=== PATIENT | male | born 1965 | race Caucasian/White ===

== ENCOUNTER → 2018-01-05 11:13 | Outpatient (CLI) | payer OTHER, SELFPAY ==
[2018-01-05 11:59] LABS: Hemoglobin 15.7 g/dl (13.0-16.5); Mean Corp Hgb Conc 34.9 g/gl (32-36); Mean Corpuscular Hgb 30.1 pg (27.0-32.0); Mean Corpuscular Volume 86.4 fL (80-94); Platelet Count 305 K/mm3 (150-450); RBC Distribution Width CV 13.3 % (11.6-14.6); RBC Distribution Width SD 41.6 fl (35.1-43.9); Red Blood Count 5.21 M/mm3 (4.6-6.2); Scan Indicated on CBC? Y/N NO; White Blood Count 7.3 K/mm3 (4.4-11.0)
[2018-01-05 12:31] LABS: Albumin, Serum 3.9 g/dL (3.2-5.0); BUN 19 mg/dL (7-18); BUN/Creat Ratio 18.6 RATIO (10-20); Calcium,Total 8.9 mg/dL (8.5-10.1); Chloride 102 mmol/L (98-107); Creatinine, Serum 1.02 mg/dL (0.70-1.30); EST Glomerular Filtration Rate 82 mL/min (>60); Est Glom Filt Rate - Afr Amer 99 mL/min (>60); Glucose 98 mg/dL (74-106); PSA,Total - Annual Screen 0.46 ng/mL (0.00-4.00); Phosphorus 2.2 mg/dL (2.5-4.9); Potassium 3.9 mmol/L (3.5-5.1); Sodium Level 138 mmol/L (136-145)
[2018-01-05 12:43] LABS: PTHIN 60.3 pg/mL (18.4-80.1); Vitamin D,25 Hydroxy 76.2 ng/mL (29.95-100.01)
== END ==
PROVIDERS: Family Provider Family Medicine Geriatric Medicine; PCP Family Medicine Geriatric Medicine; Visit Provider Internal Medicine Endocrinology, Diabetes & Metabolism
DX: M81.0 Age-related osteoporosis without current pathological fracture (principal); E21.1 Secondary hyperparathyroidism, not elsewhere classified; E55.9 Vitamin D deficiency, unspecified; E23.6 Other disorders of pituitary gland; Z79.899 Other long term (current) drug therapy
CPT/HCPCS: 36415; 80069; 82306; 83970; 84153; 84403; 85027; G0103

== ENCOUNTER → 2018-02-02 13:32 | Outpatient (CLI) | payer OTHER, SELFPAY ==
[2018-02-02 18:07] LABS: Absolute Neutrophil Count 3.9 X10^3/uL (2.0-7.7); Basophil# 0.02 X10^3/uL; Basophil% 0.3 % (0-1); Eosinophil# 0.09 X10^3/uL; Eosinophils% 1.4 % (0-5); Hematocrit 46.2 % (40-54); Hemoglobin 15.3 g/dl (13.0-16.5); Lymphocyte % 26.9 % (19-41); Mean Corp Hgb Conc 33.1 g/gl (32-36); Mean Corpuscular Hgb 29.7 pg (27.0-32.0); Mean Corpuscular Volume 89.7 fL (80-94); Monocyte% 9.5 % (0-10); Neutrophil # 3.88 X10^3/uL (2.7-7.7); Neutrophil % 61.3 % (47-70); Platelet Count 316 K/mm3 (150-450); RBC Distribution Width CV 13.7 % (11.6-14.6); RBC Distribution Width SD 44.7 fl (35.1-43.9); Red Blood Count 5.15 M/mm3 (4.6-6.2); White Blood Count 6.3 K/mm3 (4.4-11.0)
[2018-02-02 18:18] LABS: POSITIVE COUNT NO; POSITIVE DIFFERENTIAL NO; POSITIVE MORPHOLOGY NO
[2018-02-02 20:24] LABS: Vitamin D,25 Hydroxy 57.5 ng/mL (29.95-100.01)
[2018-02-02 21:18] LABS: ALB/GLOB Ratio 1.3 RATIO (0.9-2.4); AST(SGOT) 31 U/L (15-37); Alanine Aminotransfer ALT/SGPT 66 U/L (16-61); Albumin, Serum 4.2 g/dL (3.2-5.0); Alkaline Phosphatase 112 U/L (45-117); Anion Gap 6 (5-15); BUN 19 mg/dL (7-18); BUN/Creat Ratio 20.1 RATIO (10-20); Calcium,Total 9.1 mg/dL (8.5-10.1); Chloride 105 mmol/L (98-107); Creatinine, Serum 0.94 mg/dL (0.70-1.30); EST Glomerular Filtration Rate 89 mL/min (>60); Est Glom Filt Rate - Afr Amer 108 mL/min (>60); Globulin 3.3 g/dL (2.2-4.2); Glucose 70 mg/dL (74-106); Potassium 4.3 mmol/L (3.5-5.1); Protein, Total 7.5 g/dL (6.4-8.2); Sodium Level 140 mmol/L (136-145); Thyroid Stim Hormone (TSH) 1.42 uIU/mL (0.358-3.74)
== END ==
PROVIDERS: Family Provider Family Medicine Geriatric Medicine; PCP Family Medicine Geriatric Medicine; Visit Provider Family Medicine Geriatric Medicine
DX: I10 Essential (primary) hypertension (principal); E55.9 Vitamin D deficiency, unspecified
CPT/HCPCS: 36415; 80053; 82306; 84443; 85025

== ENCOUNTER → 2018-04-01 10:19 | Outpatient (CLI) | payer OTHER, SELFPAY ==
--- NOTE | 2018-04-01 10:23 | RAD_ITS ---
STUDY: X-RAY - UNILATERAL RIBS ( LEFT ) REASON FOR EXAM: Male, 53 years old. Pain status post coughing fit. TECHNIQUE: 4 view(s) of the ribs. COMPARISON: Chest radiograph dated May 24, 2016 FINDINGS: Normal visualized ribs without a demonstrated fracture. The visualized lung is clear and expanded. RAD/Ribs Unil 2V No CXR IMPRESSION: Within normal limits x-ray examination of the ribs. Electronically Signed: Tahira Vaughn MD at 19:07 EDT Tel , Service support ,
--- NOTE | 2018-04-01 10:24 | RAD_ITS ---
STUDY: X-RAY CHEST REASON FOR EXAM: Male, 53 years old. Left mid rib pain. TECHNIQUE: PA and lateral views of the chest. COMPARISON: April 27 and May 24, 2016 FINDINGS: There is no new focal consolidation. The lungs remain hyperinflated. There are stable bilateral granulomas. Normal size heart. Normal mediastinum and binta. Normal visualized pulmonary arteries. Normal visualized aortic arch and descending thoracic aorta. Normal visualized thoracic spine. Normal visualized ribs, clavicles, and shoulders. There is no demonstrated abnormality of the visualized soft tissue structures of the upper abdomen. RAD/Chest PA and Lateral IMPRESSION: Stable examination demonstrating no acute cardiopulmonary process. Electronically Signed: Tahira Vaughn MD at 17:08 EDT Tel , Service support ,
== END ==
PROVIDERS: Family Provider Family Medicine Geriatric Medicine; PCP Family Medicine Geriatric Medicine; Visit Provider Family Medicine Geriatric Medicine
DX: R07.89 Other chest pain (principal); R09.1 Pleurisy
CPT/HCPCS: 71046; 71100

== ENCOUNTER 2018-05-13 06:57 | Day surgery (SDC) | payer OTHER, SELFPAY ==
[2018-05-13 07:17] VITALS: BP 109/79; PULSE 66; RESP 14; TEMP 36.8; O2SAT 96; BMI 26.6
--- NOTE | 2018-05-13 07:38 | PCM.HP.STD ---
History of Present Illness Date of Admission: 05/13/18 The patient is a 53 year old M presented for colonoscopy and EGD for evaluation reflux and screening colonoscopy. 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 Patient has been able to stop his Plavix. Patient has never had a scope previously. He is also on opiates daily for back pain and he does have constipation about once a week which now he does state he has occasional blood on the toilet paper. But denies any family history of colon cancer. He states his dysphagia occurs maybe about once a week he feels like it catches in his lower esophagus but he will wait or drink and it will resolve he is only had emesis once since his last appointment which was back in the end of February. Past Medical History Past Medical History (Chronic Problems): Chronic Problems (Last Updated 03/03/18 @ 08:33 by Puja Brenner) Dysphagia (Chronic) For the past couple months feels like food/pills and liquids may stick in lower neck happens about once a week History of dissection of internal carotid artery (Chronic) Left ICA near petrous portion, near resolution as of CTA Head-07/03/16 at [facility] Medical History: Medical History (Last Updated 03/03/18 @ 08:33 by Puja Brenner) History of dissection of internal carotid artery (Chronic) Z86.79 Left ICA near petrous portion, near resolution as of CTA Head-07/03/16 at [facility] Back pain M54.9 Carotid artery dissection I77.71 Hypercholesterolemia with hyperglyceridemia E78.2 HTN (hypertension) I10 Allergies No Known Allergies Allergy (Verified 05/13/18 07:14) Home Medications: Ambulatory Orders Medication Instructions Recorded Ascorbic Acid [Vitamin C] 500 mg PO DAILY@0800 08/06/13 Calcium Carb/Vitamin D 2 tab PO DAILY@0800 08/06/13 [Caltrate-600 With Vit D Tab] Cholecalciferol (Vitamin D3) 1 tab PO DAILY 08/06/13 [Vitamin D3] Hydrochlorothiazide [Hctz] 6.25 mg PO BID 08/06/13 Multivitamins,Therapeutic 1 tablet PO DAILY 08/06/13 [Multivitamin] Oxycodone HCl/Acetaminophen 1 - 2 tablet PO Q6H PRN PRN 08/06/13 [Percocet 5/325] fentaNYL patch [Duragesic] 25 mcg TRANSDERM. Q48H 08/06/13 Magnesium 200 mg PO DAILY 10/03/15 Aspirin 325 mg PO DAILY@0800 05/24/16 atorvastatin 40 mg tablet 40 mg PO QDAY 03/03/18 clopidogrel 75 mg tablet 75 mg PO QDAY 03/03/18 doxepin 50 mg capsule 50 mg PO QHS PRN 03/03/18 zoledronic acid 5 mg/100 mL in 5 mg IV X1 03/03/18 mannitol 5 %-water intravenous piggybck Surgical History: Surgical History (Last Updated 03/03/18 @ 08:33 by Puja Brenner) H/O vasectomy Z98.52 History of back surgery Z98.890 x 2 History of total right hip arthroplasty Z96.641 S/P carpal tunnel release Z98.890 Smoking Status: Former smoker Review of Systems Constitutional: Denies: Anorexia, Fever Eyes: Denies: Blurred vision HEENT: Reports: Difficulty Swallowing Cardiovascular: Denies: Chest Pain Respiratory: Denies: Shortness of breath at rest Gastrointestinal: Reports: Constipation. Denies: Abdominal Pain Genitourinary: Denies: Dysuria Musculoskeletal: Denies: Joint Pain VTE Information - Inpt Only VTE Present on Admission: No VTE Mechan Device Prophylaxis: None VTE Pharm Prophylaxis ordered?: No - Physical Exam General: Alert, Oriented x3, Cooperative, No apparent distress Lungs: Normal air movement Cardiovascular: Regular rate Abdomen: Soft, Non Tender - No guarding or rebound, Non-Distended Extremities: No clubbing, No cyanosis, No edema Skin: No rashes Musculoskeletal: No Tenderness to Palpation of Joints or Extremities Neurological: Cranial nerves II-XII grossly intact Psych/Mental Status: Normal Affect Vital Signs Temp Pulse Resp BP Pulse Ox 98.2 F 66 14 109/79 96 05/13/18 07:17 05/13/18 07:17 05/13/18 07:17 05/13/18 07:17 05/13/18 07:17 Oxygen Delivery Method Room Air Weight: 186 lb 1.122 oz Body Mass Index (BMI) 26.6 Finger Stick Blood Glucose 87 Assessment/Plan 53-year-old male for colonoscopy for screening and EGD for dysphasia 1. I have discussed the above with the patient. I have offered the patient EGD and colonoscopy for evaluation. I have explained the risks/benefits of the procedure and described the procedure. I have discussed the risks with the patient, including but not limited to: infection, bleeding, perforation of the GI tract requiring emergency surgery, inability to complete the procedure, injury to any internal organs, complications of anesthesia, etc. - the patient understands and agrees to proceed. I have answered all the patient's questions to the patient's satisfaction and the patient has no further questions. Patient has completed that MiraLAX Dulcolax split prep and states that it is clear. Natalie Jiang M.D. Pager: [phone] [facility] [address] [place] [address] [address] [place] [address] Office: [phone]
--- NOTE | 2018-05-13 07:42 | HP.PCM_ITS ---
History of Present Illness Date of Admission: 05/13/18 The patient is a 53 year old M presented for colonoscopy and EGD for evaluation reflux and screening colonoscopy. 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 Patient has been able to stop his Plavix. Patient has never had a scope previously. He is also on opiates daily for back pain and he does have constipation about once a week which now he does state he has occasional blood on the toilet paper. But denies any family history of colon cancer. He states his dysphagia occurs maybe about once a week he feels like it catches in his lower esophagus but he will wait or drink and it will resolve he is only had emesis once since his last appointment which was back in the end of February. Past Medical History Past Medical History (Chronic Problems): Chronic Problems (Last Updated 03/03/18 @ 08:33 by Puja Brenner) Dysphagia (Chronic) For the past couple months feels like food/pills and liquids may stick in lower neck happens about once a week History of dissection of internal carotid artery (Chronic) Left ICA near petrous portion, near resolution as of CTA Head-07/03/16 at [facility] Medical History: Medical History (Last Updated 03/03/18 @ 08:33 by Puja Brenner) History of dissection of internal carotid artery (Chronic) Z86.79 Left ICA near petrous portion, near resolution as of CTA Head-07/03/16 at [facility] Back pain M54.9 Carotid artery dissection I77.71 Hypercholesterolemia with hyperglyceridemia E78.2 HTN (hypertension) I10 Allergies No Known Allergies Allergy (Verified 05/13/18 07:14) Home Medications: Ambulatory Orders Medication Instructions Recorded Ascorbic Acid [Vitamin C] 500 mg PO DAILY@0800 08/06/13 Calcium Carb/Vitamin D 2 tab PO DAILY@0800 08/06/13 [Caltrate-600 With Vit D Tab] Cholecalciferol (Vitamin D3) 1 tab PO DAILY 08/06/13 [Vitamin D3] Hydrochlorothiazide [Hctz] 6.25 mg PO BID 08/06/13 Multivitamins,Therapeutic 1 tablet PO DAILY 08/06/13 [Multivitamin] Oxycodone HCl/Acetaminophen 1 - 2 tablet PO Q6H PRN PRN 08/06/13 [Percocet 5/325] fentaNYL patch [Duragesic] 25 mcg TRANSDERM. Q48H 08/06/13 Magnesium 200 mg PO DAILY 10/03/15 Aspirin 325 mg PO DAILY@0800 05/24/16 atorvastatin 40 mg tablet 40 mg PO QDAY 03/03/18 clopidogrel 75 mg tablet 75 mg PO QDAY 03/03/18 doxepin 50 mg capsule 50 mg PO QHS PRN 03/03/18 zoledronic acid 5 mg/100 mL in 5 mg IV X1 03/03/18 mannitol 5 %-water intravenous piggybck Surgical History: Surgical History (Last Updated 03/03/18 @ 08:33 by Puja Brenner) H/O vasectomy Z98.52 History of back surgery Z98.890 x 2 History of total right hip arthroplasty Z96.641 S/P carpal tunnel release Z98.890 Smoking Status: Former smoker Review of Systems Constitutional: Denies: Anorexia, Fever Eyes: Denies: Blurred vision HEENT: Reports: Difficulty Swallowing Cardiovascular: Denies: Chest Pain Respiratory: Denies: Shortness of breath at rest Gastrointestinal: Reports: Constipation. Denies: Abdominal Pain Genitourinary: Denies: Dysuria Musculoskeletal: Denies: Joint Pain VTE Information - Inpt Only VTE Present on Admission: No VTE Mechan Device Prophylaxis: None VTE Pharm Prophylaxis ordered?: No - Physical Exam General: Alert, Oriented x3, Cooperative, No apparent distress Lungs: Normal air movement Cardiovascular: Regular rate Abdomen: Soft, Non Tender - No guarding or rebound, Non-Distended Extremities: No clubbing, No cyanosis, No edema Skin: No rashes Musculoskeletal: No Tenderness to Palpation of Joints or Extremities Neurological: Cranial nerves II-XII grossly intact Psych/Mental Status: Normal Affect Vital Signs Temp Pulse Resp BP Pulse Ox 98.2 F 66 14 109/79 96 05/13/18 07:17 05/13/18 07:17 05/13/18 07:17 05/13/18 07:17 05/13/18 07:17 Oxygen Delivery Method Room Air Weight: 186 lb 1.122 oz Body Mass Index (BMI) 26.6 Finger Stick Blood Glucose 87 Assessment/Plan 53-year-old male for colonoscopy for screening and EGD for dysphasia 1. I have discussed the above with the patient. I have offered the patient EGD and colonoscopy for evaluation. I have explained the risks/benefits of the procedure and described the procedure. I have discussed the risks with the patient, including but not limited to: infection, bleeding, perforation of the GI tract requiring emergency surgery, inability to complete the procedure, injury to any internal organs, complications of anesthesia, etc. - the patient understands and agrees to proceed. I have answered all the patient's questions to the patient's satisfaction and the patient has no further questions. Patient has completed that MiraLAX Dulcolax split prep and states that it is clear. Natalie Jiang M.D. Pager: [phone] [facility] [address] [place] [address] [address] [place] [address] Office: [phone]
--- NOTE | 2018-05-13 08:00 | IMM_PTH ---
PATIENT: EV RESENDEZ LOC: EN U#:[id number] AGE/SX: 53/M ROOM: RE05/13/[address]: Dr. Natalie Jiang MD : 1965 BED: DIS: 05/13/2018 SPEC #: [id number] RECD: 05/13/18 12:55 STATUS: KENN REQ #: [id number] BEATRIZ: 05/13/18 08:[address]: Natalie Jiang DEPT: IMMUNOHISTOCHEMISTRY RECD BY: Mily Diez ENTERED: 05/13/18 12:55 SP TYPE: IMMUNO OTHR DR: Dr. Marv Navarrete MD Tissues: Stomach, NOS Procedures: H Pylori (initial) PHYSICIAN & INSTITUTION [place] [id number] SPECIMEN INFORMATION: Tissue Source: Antrum biopsy Clinical Info: Dysphagia, screening for colon cancer Specimen Number: [id number] CPT code: 06516 METHODOLOGY: Deparaffinized sections of prefer/formalin-fixed tissue or PAP/DQ stained slides are incubated with monoclonal/polyclonal antibodies/oligonucleotide probes. Localization is made via biotin free immunoperoxidase method. Appropriate controls are performed and reacted as expected. Results on target cell population are indicated in the following table: RESULTS: ANTIBODY / CLONE RESULT H Pylori (polyclonal) negative These tests were developed and their performance characteristics determined by [facility]. They may not have been cleared or approved by the U.S. Food and Drug Administration. The FDA has determined that such clearance or approval is not necessary. INTERPRETATION: Antrum biopsy: Negative for Helicobacter pylori organisms. ABY:terry 05/14/18
--- NOTE | 2018-05-13 08:00 | GASB_PTH ---
PATIENT: EV RESENDEZ LOC: EN U#:[id number] AGE/SX: 53/M ROOM: RE05/13/[address]: Dr. Natalie Jiang MD : 1965 BED: DIS: 05/13/2018 SPEC #: [id number] RECD: 05/13/18 11:47 STATUS: KENN SANTIAGO #: [id number] BEATRIZ: 05/13/18 08:[address]: Natalie Jiang DEPT: SURGICAL PATHOLOGY RECD BY: Edwardo Carney ENTERED: 05/13/18 13:08 SP TYPE: Gastric Bx OTHR DR: Dr. Marv Navarrete MD Tissues: Gastric mucous membrane Procedures: Surgery Specimen Level IV HEADER OPERATION: Colonoscopy PRE-OP DIAGNOSIS: Dysphagia; screening for colon cancer TISSUE SUBMITTED: Antrum biopsy for H. pylori and path MICROSCOPIC DIAGNOSIS Antral biopsy: Mild gastritis. SJ:terry 05/14/18 COMMENT The results of immunohistochemistry for Helicobacter pylori will be reported separately ([id number]). MICROSCOPIC DESCRIPTION Slides are reviewed. The specimen shows fragments of gastric mucosa with chronic inflammatory cell infiltrates in the lamina propria consisting of lymphocytes and plasma cells, consistent with mild chronic gastritis. GROSS DESCRIPTION Received in fixative is one container labeled with the patient's name and designated antrum biopsy for H. pylori and path. The specimen consists of two irregular fragments of light zee soft tissue that in aggregate measure 0.4 x 0.2 x 0.1 cm. The specimen is totally submitted in one cassette. / SJ:rg 05/13/18 TC:3 CPT: 22886
[2018-05-13 08:30] VITALS: BP 103/75; BP 109/79; PULSE 81; RESP 18; TEMP 36.2; O2SAT 100
--- NOTE | 2018-05-13 08:34 | PCM.OPRPT ---
Report of Operation Date of Procedure: 05/13/18 Pre-Operative Diagnosis: Dysphasia, screening for colon cancer Post-Operative Diagnosis: No stricture seen in esophagus, minimal gastritis, grade 1 internal hemorrhoid Surgery/Procedure Performed:: EGD with biopsy, colonoscopy Type of Anesthesia:: MAC Anesthesiologist: Brendan Salamanca Specimen's removed: 1. Antral biopsy for histology and H. pylori Estimated Blood Loss (mL): Minimal Description of Procedure: Procedure: EGD with biopsy After obtaining informed consent, the endoscope was passed under direct visualization. Throughout the procedure, patient's blood pressure, pulse, oxygen saturations were monitored continuously by anesthesia. The endoscope was introduced through the mouth and advanced to the 2nd part of the duodenum. The upper GI endoscopy was accomplished without difficulty. Patient tolerated procedure well. Findings: The esophagus was patent no evidence of stricture and no evidence of reflux changes at the GE junction. Minimal erythematous mucosa found gastric antrum. Biopsy taken of antrum for H. pylori and histology Biopsies were taken with cold biopsy for histology. Estimated blood loss was minimal. The duodenum was normal. Impression: 1. No stricture seen in the esophagus 2. Erythematous mucosa in the antrum. Biopsied. 3. Normal examined duodenum Recommendations: Await biopsy If continued to have dysphasia will order a barium swallow unsure if this will show anything as no stricture is seen on EGD Procedure: Colonoscopy After reviewing the risks benefits, the patient was deemed in satisfactory condition to undergo procedure. After obtaining informed consent, the scope was passed under direct visualization. Throughout the procedure, the patient's blood pressure pulse and position saturations were monitored continuously anesthesia. The colonoscope was introduced through the anus and advanced to the cecum, identified by the IC valve and transillumination. The colonoscopy was performed without difficulty. The patient tolerated procedure well. Quality of bowel prep was requested. Findings: The perianal and digital rectal exam revealed small internal hemorrhoid. The colon (entire examined portion) appeared normal. Retroflexed view of the distal rectum and anal verge showed small grade 1 internal hemorrhoid Impression: 1. The entire colon is normal. 2. Small grade 1 internal hemorrhoid Recommendations: Repeat colonoscopy in 10 years for screening purposes - Complications none
[2018-05-13 08:35] VITALS: BP 103/70; BP 109/79; PULSE 76; RESP 18; O2SAT 96
[2018-05-13 08:40] VITALS: BP 109/79; BP 134/84; PULSE 76; RESP 18; O2SAT 100
[2018-05-13 08:45] VITALS: BP 109/79; BP 118/93; PULSE 87; RESP 18; TEMP 36.6; O2SAT 99
[2018-05-13 09:02] VITALS: BP 109/79
== END 2018-05-13 09:03 | disposition home or self-care (01) ==
LOC: EN 06:58 → AC 06:59
PROVIDERS: Family Provider Family Medicine Geriatric Medicine; PCP Family Medicine Geriatric Medicine; Visit Provider Surgery
PROC: 0DJD8ZZ Inspection of Lower Intestinal Tract, Via Natural or Artificial Opening Endoscopic (ICD-10-PCS; CPT 45378; principal; 2018-05-13 07:55)
DX: Z12.11 Encounter for screening for malignant neoplasm of colon (principal); R13.10 Dysphagia, unspecified; K29.70 Gastritis, unspecified, without bleeding; K64.8 Other hemorrhoids; I10 Essential (primary) hypertension; E78.1 Pure hyperglyceridemia; M54.9 Dorsalgia, unspecified; Z79.02 Long term (current) use of antithrombotics/antiplatelets; Z79.82 Long term (current) use of aspirin; Z79.899 Other long term (current) drug therapy; Z86.73 Personal history of transient ischemic attack (TIA), and cerebral infarction without residual deficits; Z86.79 Personal history of other diseases of the circulatory system; Z87.891 Personal history of nicotine dependence
CPT/HCPCS: 43239; 45378; 88305; 88342; J7120

== ENCOUNTER → 2018-07-06 12:56 | Outpatient (CLI) | payer OTHER, SELFPAY ==
[2018-07-06 14:01] LABS: Absolute Lymphocyte Count 1.55 X10^3/ul (0.83-4.51); Absolute Neutrophil Count 5.3 X10^3/uL (2.0-7.7); Basophil# 0.02 X10^3/uL; Basophil% 0.3 % (0-1); Eosinophil# 0.05 X10^3/uL; Eosinophils% 0.7 % (0-5); Hematocrit 44.5 % (40-54); Hemoglobin 15.3 g/dl (13.0-16.5); Lymphocyte # 1.55 X10^3/ul (4.0); Lymphocyte % 20.7 % (19-41); Mean Corp Hgb Conc 34.4 g/gl (32-36); Mean Corpuscular Hgb 30.5 pg (27.0-32.0); Mean Corpuscular Volume 88.8 fL (80-94); Mean Platelet Vol. 10.3 fl (6.2-12.0); Monocyte# 0.55 X10^3/uL; Monocyte% 7.4 % (0-10); Neutrophil # 5.28 X10^3/uL (2.7-7.7); Neutrophil % 70.6 % (47-70); Platelet Count 289 K/mm3 (150-450); RBC Distribution Width CV 13.5 % (11.6-14.6); RBC Distribution Width SD 43.8 fl (35.1-43.9); Red Blood Count 5.01 M/mm3 (4.6-6.2); White Blood Count 7.5 K/mm3 (4.4-11.0)
[2018-07-06 14:12] LABS: Vitamin D,25 Hydroxy 64.4 ng/mL (29.95-100.01)
[2018-07-06 14:17] LABS: POSITIVE COUNT NO; POSITIVE DIFFERENTIAL NO; POSITIVE MORPHOLOGY NO
[2018-07-06 14:24] LABS: ALB/GLOB Ratio 1.1 RATIO (0.9-2.4); AST(SGOT) 30 U/L (15-37); Alanine Aminotransfer ALT/SGPT 50 U/L (16-61); Albumin, Serum 4.1 g/dL (3.2-5.0); Alkaline Phosphatase 123 U/L (45-117); Anion Gap 7 (5-15); BUN 17 mg/dL (7-18); BUN/Creat Ratio 17.6 RATIO (10-20); Calcium,Total 9.2 mg/dL (8.5-10.1); Chloride 99 mmol/L (98-107); Creatinine, Serum 0.97 mg/dL (0.70-1.30); EST Glomerular Filtration Rate 86 mL/min (>60); Est Glom Filt Rate - Afr Amer 105 mL/min (>60); Globulin 3.7 g/dL (2.2-4.2); Glucose 87 mg/dL (74-106); Potassium 3.8 mmol/L (3.5-5.1); Protein, Total 7.8 g/dL (6.4-8.2); Sodium Level 137 mmol/L (136-145); Thyroid Stim Hormone (TSH) 1.15 uIU/mL (0.358-3.74)
== END ==
PROVIDERS: Family Provider Family Medicine Geriatric Medicine; PCP Family Medicine Geriatric Medicine; Visit Provider Family Medicine Geriatric Medicine
DX: I10 Essential (primary) hypertension (principal); E23.6 Other disorders of pituitary gland; E55.9 Vitamin D deficiency, unspecified
CPT/HCPCS: 36415; 80053; 82306; 84403; 84443; 85025

== ENCOUNTER → 2018-07-17 07:16 | Outpatient (CLI) | payer OTHER, SELFPAY ==
[2018-07-17 08:55] LABS: Absolute Lymphocyte Count 1.49 X10^3/ul (0.83-4.51); Absolute Neutrophil Count 5.1 X10^3/uL (2.0-7.7); Basophil# 0.02 X10^3/uL; Basophil% 0.3 % (0-1); Eosinophil# 0.06 X10^3/uL; Eosinophils% 0.8 % (0-5); Hematocrit 44.4 % (40-54); Hemoglobin 15.4 g/dl (13.0-16.5); Lymphocyte # 1.49 X10^3/ul (4.0); Lymphocyte % 19.9 % (19-41); Mean Corp Hgb Conc 34.7 g/gl (32-36); Mean Corpuscular Hgb 30.4 pg (27.0-32.0); Mean Corpuscular Volume 87.7 fL (80-94); Mean Platelet Vol. 10.2 fl (6.2-12.0); Monocyte# 0.77 X10^3/uL; Monocyte% 10.3 % (0-10); Neutrophil % 68.2 % (47-70); Platelet Count 291 K/mm3 (150-450); RBC Distribution Width CV 13.1 % (11.6-14.6); Red Blood Count 5.06 M/mm3 (4.6-6.2); White Blood Count 7.5 K/mm3 (4.4-11.0)
[2018-07-17 08:56] LABS: POSITIVE COUNT NO; POSITIVE DIFFERENTIAL NO; POSITIVE MORPHOLOGY NO
[2018-07-17 09:17] LABS: ALB/GLOB Ratio 1.1 RATIO (0.9-2.4); AST(SGOT) 26 U/L (15-37); Alanine Aminotransfer ALT/SGPT 47 U/L (16-61); Alkaline Phosphatase 121 U/L (45-117); Anion Gap 10 (5-15); BUN 20 mg/dL (7-18); BUN/Creat Ratio 23.2 RATIO (10-20); Calcium,Total 9.4 mg/dL (8.5-10.1); Chloride 99 mmol/L (98-107); Creatinine, Serum 0.86 mg/dL (0.70-1.30); EST Glomerular Filtration Rate 99 mL/min (>60); Est Glom Filt Rate - Afr Amer 120 mL/min (>60); Globulin 3.8 g/dL (2.2-4.2); Glucose 86 mg/dL (74-106); Potassium 3.4 mmol/L (3.5-5.1); Protein, Total 7.8 g/dL (6.4-8.2); Sodium Level 139 mmol/L (136-145)
[2018-07-17 09:25] LABS: PTHIN 54.3 pg/mL (18.4-80.1)
[2018-07-17 09:26] LABS: Vitamin D,25 Hydroxy 80.4 ng/mL (29.95-100.01)
== END ==
PROVIDERS: Family Provider Family Medicine Geriatric Medicine; PCP Family Medicine Geriatric Medicine; Referring Provider Internal Medicine Endocrinology, Diabetes & Metabolism; Visit Provider Internal Medicine Endocrinology, Diabetes & Metabolism
DX: E23.6 Other disorders of pituitary gland (principal); M85.89 Other specified disorders of bone density and structure, multiple sites; E21.1 Secondary hyperparathyroidism, not elsewhere classified; E55.9 Vitamin D deficiency, unspecified; Z79.899 Other long term (current) drug therapy
CPT/HCPCS: 36415; 80053; 82306; 83970; 84403; 85025

== ENCOUNTER → 2018-07-21 09:59 | Outpatient (CLI) | payer OTHER, SELFPAY ==
--- NOTE | 2018-07-21 10:06 | BD_ITS ---
STUDY: DUAL ENERGY X-RAY ABSORPTIOMETRY / DXA REASON FOR EXAM: Male, 53 years old. Loss of height. TECHNIQUE: Bone Mineral Density (BMD) measurements of lumbar spine, left hip and left forearm were obtained. COMPARISON: Comparison is made with prior study dated September 07, 2015. FINDINGS: Lumbar Spine (L1-L4): g/cm2 (0.946) / T-score (-1.1) / Z-score (0.7) Findings are suggestive of osteopenia with a low fracture risk. Left Femur Total: g/cm2 (0.946) / T-score (-1.1) / Z-score (-0.7) Left Femoral Neck: g/cm2 (0.948) / T-score (-0.9) / Z-score (-0.2) Left Forearm: g/cm2 (1.064) / T-score (0.8) / Z-score (0.9) The T-Scores on the most recent prior examination were: Lumbar Spine (L1-L4): There has been improvement of bone density since the previous examination. Left Femur Total: which represents a worsening of 0.2%. Right Femur Total: . BD/Dexa Bone Density Study IMPRESSION: The patient is considered osteopenic as outlined below according to World Ruddy Organization (WHO) criteria with a low fracture risk. There has been worsening of bone density since the previous examination. Reference Information: The T-score is the number of standard deviations above or below the standard which is normal for young adults at their peak bone mineral density. The World Health Organization (WHO) interprets the T-scores as follows: Above -1 Normal bone density Between -1 and -2.5 Osteopenia Equal to / or below -2.5 Osteoporosis As a practical clinical guideline, osteopenia may be graded as follows: Mild -1 through -1.5 Moderate -1.6 through -2.0 Severe -2.1 through -2.4 The Z-score is the number of standard deviations above or below age-matched controls. A Z-score of less than -1.5 would be considered abnormal. References: 1. NIH Osteoporosis and Related Bone Diseases http://www.osteo.org 2. International Society for Clinical Densitometry http://www.iscd.org 3. National Osteoporosis Foundation http://www.nof.org Electronically Signed: Mk Strong MD at 13:27 EDT Tel [phone], Service support ,
== END ==
PROVIDERS: Family Provider Family Medicine Geriatric Medicine; PCP Family Medicine Geriatric Medicine; Referring Provider Internal Medicine Endocrinology, Diabetes & Metabolism; Visit Provider Internal Medicine Endocrinology, Diabetes & Metabolism
DX: M85.80 Other specified disorders of bone density and structure, unspecified site (principal)
CPT/HCPCS: 77080

== ENCOUNTER → 2018-07-22 12:46 | Outpatient (CLI) | payer OTHER, SELFPAY ==
[2018-07-22 13:34] LABS: 24HR UR TOTAL VOLUME 1725 ml; 24HR. Urine Creatinine 1.56 g/24 HR (0.90-2.10)
[2018-07-22 16:01] LABS: Calcium Urine pH Range 1; Urine Calcium (Random) < 5.0 (Not Estab.)
[2018-07-25 20:06] LABS: Cortisol, Urinary Free 11 ug/L (Undefined)
[2018-07-26 07:34] LABS: Cortisol, Free 24Ur 19 ug/24 hr (0-50)
== END ==
PROVIDERS: Family Provider Family Medicine Geriatric Medicine; PCP Family Medicine Geriatric Medicine; Referring Provider Internal Medicine Endocrinology, Diabetes & Metabolism; Visit Provider Internal Medicine Endocrinology, Diabetes & Metabolism
DX: M85.89 Other specified disorders of bone density and structure, multiple sites (principal); E23.6 Other disorders of pituitary gland; E21.1 Secondary hyperparathyroidism, not elsewhere classified; E55.9 Vitamin D deficiency, unspecified; Z79.899 Other long term (current) drug therapy
CPT/HCPCS: 82340; 82530; 82570

== ENCOUNTER → 2018-10-01 14:41 | Outpatient (CLI) | payer OTHER, SELFPAY ==
--- NOTE | 2018-10-01 14:45 | RAD_ITS ---
STUDY: X-RAY CHEST REASON FOR EXAM: Male, 53 years old. History of pleurisy. TECHNIQUE: PA and lateral views of the chest. COMPARISON: Comparison is made with prior study dated April 01, 2018. FINDINGS: The lungs are clear and expanded. There is no demonstrated pleural abnormality. Normal size heart. Normal mediastinum and binta. Normal visualized pulmonary arteries. Normal visualized aortic arch and descending thoracic aorta. There are mild degenerative changes of the visualized thoracic spine. Normal visualized ribs, clavicles, and shoulders. There is no demonstrated abnormality of the visualized soft tissue structures of the upper abdomen. RAD/Chest PA and Lateral IMPRESSION: No acute abnormality is seen. Electronically Signed: Mk Strong MD at 10:00 EST Tel [phone], Service support ,
== END ==
PROVIDERS: Family Provider Family Medicine Geriatric Medicine; PCP Family Medicine Geriatric Medicine; Referring Provider Family Medicine Geriatric Medicine; Visit Provider Family Medicine Geriatric Medicine
DX: R09.1 Pleurisy (principal)
CPT/HCPCS: 71046

== ENCOUNTER → 2019-01-05 06:59 | Outpatient (CLI) | payer OTHER, SELFPAY ==
[2019-01-05 09:02] LABS: Albumin, Serum 4.1 g/dL (3.2-5.0); BUN 19 mg/dL (7-18); Calcium,Total 9.6 mg/dL (8.5-10.1); Chloride 104 mmol/L (98-107); EST Glomerular Filtration Rate 93 mL/min (>60); Est Glom Filt Rate - Afr Amer 113 mL/min (>60); Glucose 79 mg/dL (74-106); Phosphorus 3.2 mg/dL (2.5-4.9); Sodium Level 140 mmol/L (136-145); T4 Free Direct 1.09 ng/dL (0.76-1.46); Thyroid Stim Hormone (TSH) 1.68 uIU/mL (0.358-3.74)
[2019-01-05 09:10] LABS: PTHIN 42.6 pg/mL (18.4-80.1)
[2019-01-05 09:13] LABS: Vitamin D,25 Hydroxy 79.8 ng/mL (29.95-100.01)
== END ==
PROVIDERS: Family Provider Family Medicine Geriatric Medicine; PCP Family Medicine Geriatric Medicine; Referring Provider Internal Medicine Endocrinology, Diabetes & Metabolism; Visit Provider Internal Medicine Endocrinology, Diabetes & Metabolism
DX: E23.6 Other disorders of pituitary gland (principal); E55.9 Vitamin D deficiency, unspecified; M85.89 Other specified disorders of bone density and structure, multiple sites; E21.1 Secondary hyperparathyroidism, not elsewhere classified; Z79.899 Other long term (current) drug therapy
CPT/HCPCS: 36415; 80069; 82306; 83970; 84403; 84439; 84443

== ENCOUNTER → 2019-01-29 12:40 | Outpatient (CLI) | payer OTHER, SELFPAY ==
[2019-01-29 12:47] VITALS: BP 139/78; PULSE 85; RESP 16; TEMP 36.8; O2SAT 93; BMI 27.2
[2019-01-29] MEDS: Zoledronic Acid 5 MG 100 ML 300 MG IV (13:01)
== END ==
PROVIDERS: Family Provider Family Medicine Geriatric Medicine; PCP Family Medicine Geriatric Medicine; Referring Provider Internal Medicine Endocrinology, Diabetes & Metabolism; Visit Provider Internal Medicine Endocrinology, Diabetes & Metabolism
DX: M81.0 Age-related osteoporosis without current pathological fracture (principal)
CPT/HCPCS: 96365; A4216; J3489

== ENCOUNTER → 2019-02-03 13:39 | Outpatient (CLI) | payer OTHER, SELFPAY ==
[2019-01-29 12:47] VITALS: BMI 27.2
[2019-02-03 15:24] LABS: Absolute Lymphocyte Count 1.69 X10^3/ul (0.83-4.51); Absolute Neutrophil Count 5.2 X10^3/uL (2.0-7.7); Basophil# 0.02 X10^3/uL; Basophil% 0.3 % (0-1); Eosinophil# 0.04 X10^3/uL; Eosinophils% 0.5 % (0-5); Hematocrit 44.8 % (40-54); Hemoglobin 15.1 g/dl (13.0-16.5); Lymphocyte # 1.69 X10^3/ul (4.0); Lymphocyte % 22.4 % (19-41); Mean Corp Hgb Conc 33.7 g/gl (32-36); Mean Corpuscular Hgb 30.1 pg (27.0-32.0); Mean Corpuscular Volume 89.2 fL (80-94); Mean Platelet Vol. 10.2 fl (6.2-12.0); Monocyte# 0.58 X10^3/uL; Monocyte% 7.7 % (0-10); Neutrophil # 5.18 X10^3/uL (2.7-7.7); Neutrophil % 68.6 % (47-70); Platelet Count 312 K/mm3 (150-450); RBC Distribution Width CV 13.7 % (11.6-14.6); RBC Distribution Width SD 44.3 fl (35.1-43.9); Red Blood Count 5.02 M/mm3 (4.6-6.2); White Blood Count 7.6 K/mm3 (4.4-11.0)
[2019-02-03 15:27] LABS: POSITIVE COUNT NO; POSITIVE DIFFERENTIAL NO; POSITIVE MORPHOLOGY NO
[2019-02-03 16:45] LABS: ALB/GLOB Ratio 1.1 RATIO (0.9-2.4); AST(SGOT) 37 U/L (15-37); Alanine Aminotransfer ALT/SGPT 61 U/L (16-61); Alkaline Phosphatase 124 U/L (45-117); Anion Gap 8 (5-15); BUN 16 mg/dL (7-18); BUN/Creat Ratio 14.5 RATIO (10-20); Calcium,Total 8.6 mg/dL (8.5-10.1); Chloride 105 mmol/L (98-107); EST Glomerular Filtration Rate 74 mL/min (>60); Est Glom Filt Rate - Afr Amer 90 mL/min (>60); Globulin 3.7 g/dL (2.2-4.2); Glucose 84 mg/dL (74-106); Potassium 3.7 mmol/L (3.5-5.1); Protein, Total 7.7 g/dL (6.4-8.2); Sodium Level 138 mmol/L (136-145)
[2019-02-03 16:47] LABS: Vitamin D,25 Hydroxy 60.1 ng/mL (29.95-100.01)
== END ==
PROVIDERS: Family Provider Family Medicine Geriatric Medicine; PCP Family Medicine Geriatric Medicine; Visit Provider Family Medicine Geriatric Medicine
DX: I10 Essential (primary) hypertension (principal); E23.6 Other disorders of pituitary gland; E55.9 Vitamin D deficiency, unspecified
CPT/HCPCS: 36415; 80053; 82306; 84403; 84443; 85025

== ENCOUNTER → 2019-03-16 16:01 | Outpatient (CLI) | payer OTHER, SELFPAY ==
[2019-01-29 12:47] VITALS: BMI 27.2
--- NOTE | 2019-03-16 16:04 | RAD_ITS ---
STUDY: X-RAY - THORACIC SPINE REASON FOR EXAM: Male, 54 years old. Chronic back pain. TECHNIQUE: 4 view(s) of the thoracic spine were obtained. COMPARISON: Chest radiograph dated October 01, 2018 FINDINGS: Normal kyphosis of the thoracic spine. There is no substantial scoliosis. There is demineralization of the thoracic spine. There is multilevel mild disc space narrowing of the thoracic spine. The soft tissue structures are unremarkable. RAD/Thoracic Spine 3 Views IMPRESSION: Mild degenerative changes. Electronically Signed: Tahira Vaughn MD at 22:03 EDT Tel , Service support ,
--- NOTE | 2019-03-16 16:25 | RAD_ITS ---
HISTORY: chronic low back pain TECHNIQUE: Lumbar spine 3 views Number of images including paperwork: 3 COMPARISON: 09/04/2015 FINDINGS: VERTEBRAE: No acute fracture. VERTEBRAL ALIGNMENT: No traumatic subluxation. Mild right convex lumbar curvature. DISKS AND JOINTS: Mild discogenic degenerative changes. L5 laminectomy. Spinal fusion is present from L4-S1 with posterior rods and pedicle screws. 1 of the screws at S1 is noted to be fractured on the lateral view, not present on the previous study. This is not definitely seen on the frontal view and it is uncertain which side this is on. SOFT TISSUES: Unremarkable paraspinous soft tissues. RAD/Lumbar Spine 2 or 3 Views IMPRESSION: 1. No acute osseous abnormality. 2. L4-S1 fusion with fractured S1 screw, as described. at 0536 Reported and signed by: Juanis Bryant MD Electronically Signed: Juanis Bryant MD at 5:36 EDT Tel , Service support ,
== END ==
PROVIDERS: Family Provider Family Medicine Geriatric Medicine; PCP Family Medicine Geriatric Medicine; Referring Provider Family Medicine Geriatric Medicine; Visit Provider Family Medicine Geriatric Medicine
DX: M54.5 Low back pain (principal); M54.6 Pain in thoracic spine
CPT/HCPCS: 72072; 72100

== ENCOUNTER 2019-06-01 15:27 | Emergency (ER) | payer OTHER, SELFPAY ==
[2019-01-29 12:47] VITALS: BMI 27.2
[2019-06-01 15:28] VITALS: BP 133/96; PULSE 90; RESP 16; TEMP 36.2; O2SAT 98; BMI 27.6
--- NOTE | 2019-06-01 15:35 | ED.VIS.GEN ---
History of Present Illness Chief Complaint: Laceration Detail of Chief Complaint: Finger laceration Informant: Patient Onset: Today Current Severity: Mild Maximum Severity: Mild Narrative: Patient presents with a laceration over the PIP joint of the right fourth finger. He was using a utility knife to try to cut drywall. His finger came down across the top, non-sharp side of the blade and he suffered a laceration. He is able to fully extend and flex his finger. He denies paresthesia. His last tetanus update was in 2014. - Past Medical History (1) Hypertension Status: Chronic (2) High cholesterol Status: Chronic (3) History of dissection of internal carotid artery Status: Chronic Comment: Left ICA near petrous portion, near resolution as of CTA Head-07/03/16 at [facility] Past Medical History - Allergies and Home Meds Allergies/Adverse Reactions: Allergies No Known Allergies Allergy (Verified 06/01/19 15:30) Primary Care Physician: Marv Navarrete Chi, MD [Primary Care Provider] - 7 Days for suture removal Prior records reviewed: Yes Past Medical History: - - Reviewed Lives: Spouse/ Significant Other Smoking Status: Former smoker Review of Systems General: Denies: Chills, Fever ENT: Denies: Bilateral ear pain Cardiovascular: Denies: Chest pain Respiratory: Denies: Dyspnea Musculoskeletal: Reports: Arthralgias, Extremity Pain Skin: Reports: Wounds Neurological: Denies: Weakness, Parasthesia Hematologic: Denies: Easy bruising Allergy: Denies: Uticaria Physical Exam Vital Signs/Narrative: Vital Signs Temp Pulse Resp BP Pulse Ox 06/01/19 15:28 97.2 F L 90 16 133/96 H 98 Inital Vital Signs reviewed: Yes General: Well nourished, Well developed ENT: Moist mucous membranes Neck: Supple Cardiovascular: Regular rate, Regular rhythm Respiratory: No distress Abdomen: Soft, Nontender Extremities: - - There is a 1.5 cm laceration over the PIP joint of the right fourth finger on the dorsal surface. He has normal strength and sensation. Normal cap refill. Skin: - - Laceration as above Neurological: Alert, Oriented x3, Normal Strength, Normal Sensation Psychological: Normal affect Diagnostic/Tx/Re-eval - Medical Decision Making Wound was cleansed. Digital block was performed with 4 cc 1% lidocaine. 4 simple interrupted sutures of 4-0 nylon were placed. Wound care as discussed. Patient will have sutures removed in 7 to 10 days. Procedures - Lacerations No standard instances Length: 0.59 in Depth: Skin Shape: Linear Laceration repair: Lidocaine Number of Sutures/Gilberto: 4 Suture Information: Simple, 4-0 ED Disposition - Plan for ED Patient: Disposition: Home or Assisted Living Diagnosis: Finger laceration Instructions: LACERATION, Hand Referrals: Marv Navarrete Chi, MD [Primary Care Provider] - 7 Days for suture removal
== END 2019-06-01 16:24 | disposition home or self-care (01) ==
PROVIDERS: Emergency Provider Emergency Medicine; Family Provider Family Medicine Geriatric Medicine; PCP Family Medicine Geriatric Medicine
DX: S61.214A Laceration without foreign body of right ring finger without damage to nail, initial encounter (principal); W26.0XXA Contact with knife, initial encounter; Y93.89 Activity, other specified; Y92.9 Unspecified place or not applicable; Y99.0 Civilian activity done for income or pay; I10 Essential (primary) hypertension; E78.00 Pure hypercholesterolemia, unspecified; Z87.891 Personal history of nicotine dependence; Z79.02 Long term (current) use of antithrombotics/antiplatelets; Z79.82 Long term (current) use of aspirin; Z79.899 Other long term (current) drug therapy
CPT/HCPCS: 12001; 99284

== ENCOUNTER → 2019-07-30 08:36 | Outpatient (CLI) | payer OTHER, SELFPAY ==
[2019-07-26 10:00] VITALS: BMI 27.6
[2019-07-30 12:49] LABS: Absolute Lymphocyte Count 1.61 X10^3/uL (0.83-4.51); Absolute Neutrophil Count 4.4 X10^3/uL (2.0-7.7); Basophil# 0.05 X10^3/uL; Basophil% 0.7 % (0-1); Eosinophil# 0.09 X10^3/uL; Eosinophils% 1.3 % (0-5); Hematocrit 46.1 % (40-54); Hemoglobin 15.2 g/dL (13.0-16.5); Lymphocyte # 1.61 X10^3/ul (4.0); Lymphocyte % 23.2 % (19-41); Mean Corpuscular Hgb 30.3 pg (27.0-32.0); Mean Corpuscular Volume 91.8 fL (80-94); Mean Platelet Vol. 9.8 fl (6.2-12.0); Monocyte# 0.69 X10^3/uL; Monocyte% 9.9 % (0-10); NRBC Flagged by Analyzer 0 % (0-5); Neutrophil # 4.43 X10^3/uL (2.7-7.7); Neutrophil % 63.9 % (47-70); Platelet Count 301 K/mm3 (150-450); RBC Distribution Width CV 13.2 % (11.6-14.6); RBC Distribution Width SD 44.3 fl (35.1-43.9); Red Blood Count 5.02 M/mm3 (4.6-6.2); White Blood Count 6.9 K/mm3 (4.4-11.0)
[2019-07-30 13:07] LABS: Vitamin D,25 Hydroxy 67.9 ng/mL (29.95-100.01)
[2019-07-30 13:11] LABS: ALB/GLOB Ratio 1.1 RATIO (0.9-2.4); AST(SGOT) 31 U/L (15-37); Alanine Aminotransfer ALT/SGPT 58 U/L (16-61); Albumin, Serum 3.9 g/dL (3.2-5.0); Alkaline Phosphatase 103 U/L (45-117); Anion Gap 5 (5-15); BUN 21 mg/dL (7-18); BUN/Creat Ratio 22.9 RATIO (10-20); Calcium,Total 9.1 mg/dL (8.5-10.1); Chloride 104 mmol/L (98-107); Creatinine, Serum 0.92 mg/dL (0.70-1.30); EST Glomerular Filtration Rate 91 mL/min (>60); Est Glom Filt Rate - Afr Amer 111 mL/min (>60); Globulin 3.7 g/dL (2.2-4.2); Glucose 72 mg/dL (74-106); Potassium 3.9 mmol/L (3.5-5.1); Protein, Total 7.6 g/dL (6.4-8.2); Sodium Level 138 mmol/L (136-145); Thyroid Stim Hormone (TSH) 2.03 uIU/mL (0.358-3.74)
== END ==
PROVIDERS: Family Provider Family Medicine Geriatric Medicine; PCP Family Medicine Geriatric Medicine; Referring Provider Family Medicine Geriatric Medicine; Visit Provider Family Medicine Geriatric Medicine
DX: I10 Essential (primary) hypertension (principal); E55.9 Vitamin D deficiency, unspecified
CPT/HCPCS: 36415; 80053; 82306; 84443; 85025

== ENCOUNTER → 2019-08-05 11:00 | Outpatient (CLI) | payer OTHER, SELFPAY ==
[2019-07-26 10:00] VITALS: BMI 27.6
[2019-08-05 12:37] LABS: PSA,Total- Diagnostic 0.46 ng/mL (0.0-4.0)
[2019-08-08 12:07] LABS: Testosterone, Free 5.29 ng/dL (5.00-21.00)
[2019-08-09 12:48] LABS: Testosterone, % Free 1.73 % (1.50-4.20); Testosterone, Total 306 ng/dL (264-916)
== END ==
PROVIDERS: Family Provider Family Medicine Geriatric Medicine; PCP Family Medicine Geriatric Medicine; Referring Provider Internal Medicine Endocrinology, Diabetes & Metabolism; Visit Provider Internal Medicine Endocrinology, Diabetes & Metabolism
DX: E29.1 Testicular hypofunction (principal)
CPT/HCPCS: 36415; 84153; 84402; 84403

== ENCOUNTER → 2019-12-07 10:28 | Outpatient (CLI) | payer OTHER, SELFPAY ==
[2019-07-26 10:00] VITALS: BMI 27.6
== END ==
PROVIDERS: PCP Family Medicine Geriatric Medicine; Referring Provider Pain Medicine Interventional Pain Medicine; Visit Provider Pain Medicine Interventional Pain Medicine
DX: M96.1 Postlaminectomy syndrome, not elsewhere classified (principal)

== ENCOUNTER → 2019-12-30 09:05 | Outpatient (CLI) | payer OTHER, SELFPAY ==
[2019-07-26 10:00] VITALS: BMI 27.6
[2020-01-02 20:06] LABS: Testosterone, Free 7.26 ng/dL (5.00-21.00)
[2020-01-02 20:12] LABS: Testosterone, % Free 1.67 % (1.50-4.20); Testosterone, Total 435 ng/dL (264-916)
== END ==
PROVIDERS: PCP Family Medicine Geriatric Medicine; Visit Provider Internal Medicine Endocrinology, Diabetes & Metabolism
DX: R79.89 Other specified abnormal findings of blood chemistry (principal)
CPT/HCPCS: 36415; 84402; 84403

== ENCOUNTER → 2020-01-04 12:35 | Outpatient (CLI) | payer OTHER, SELFPAY ==
[2019-07-26 10:00] VITALS: BMI 27.6
[2020-01-04 13:35] LABS: Amphetamine Urine VISTA NEGATIVE (<1000 ng/mL); Barbiturate Urine VISTA NEGATIVE (< 200 ng/mL); Benzodiazepine Urine VISTA NEGATIVE (< 200 ng/mL); Cocaine Urine VISTA NEGATIVE (< 300 ng/mL); Ecstacy Urine VISTA NEGATIVE (< 500 ng/mL); Methadone Urine VISTA NEGATIVE (< 300 ng/mL); PCP Urine VISTA NEGATIVE (< 25 ng/mL); THC Urine VISTA NEGATIVE (< 50 ng/mL); Vista UDS pH Range 6
[2020-01-04 13:46] LABS: OXY Internal Control LINE = VALID (VALID); Oxycodone Drug Screen Positive (<100 ng/mL)
== END ==
PROVIDERS: PCP Family Medicine Geriatric Medicine; Referring Provider Pain Medicine Interventional Pain Medicine; Visit Provider Pain Medicine Interventional Pain Medicine
DX: Z79.891 Long term (current) use of opiate analgesic (principal)
CPT/HCPCS: 80307; 80365; G0480

== ENCOUNTER → 2020-05-16 15:02 | Outpatient (CLI) | payer OTHER, SELFPAY ==
[2020-01-17 09:03] VITALS: BMI 27.6
== END ==
PROVIDERS: PCP Family Medicine Geriatric Medicine; Referring Provider Pain Medicine Interventional Pain Medicine; Visit Provider Pain Medicine Interventional Pain Medicine
DX: Z79.891 Long term (current) use of opiate analgesic (principal)

== ENCOUNTER → 2020-07-25 09:14 | Outpatient (CLI) | payer OTHER, SELFPAY ==
[2020-07-10 09:27] VITALS: BMI 27.6
--- NOTE | 2020-07-25 09:18 | BD_ITS ---
STUDY: DUAL ENERGY X-RAY ABSORPTIOMETRY / DXA REASON FOR EXAM: Male, 55 years old. HX OF TESTOSTERONE USE -- HX OF SMOKING- QUIT 5 YRS AGO -- HX OF TAKING HCTZ -- TAKES 1200MG CALCIUM + MULTIVITAMIN -- HX OF TAKING FORTEO -- DOES LITTLE EXERCISE -- HX OF RIGHT HAND AND WRIST FX''S -- HX OF L4-S1 FUSION AND RIGHT HIP REPLACEMENT -- DEVAUGHN OF 1 INCH TECHNIQUE: Bone Mineral Density (BMD) measurements of lumbar spine and left hip were obtained. COMPARISON: Comparison is made with prior examination dated 09/07/2015. FINDINGS: Lumbar Spine (L1-L4): g/cm2 (1.039) / T-score (-1.4) / Z-score (-1.2) Findings are suggestive of osteopenia with a low fracture risk. Left Femur Total: g/cm2 (0.933) / T-score (-1.2) / Z-score (-0.8) Left Femoral Neck: g/cm2 (0.937) / T-score (-1.0) / Z-score (-0.3) The T-Scores on the most recent prior examination were: Lumbar Spine (L1-L4): There has been improvement of bone density since the previous examination. Left Femur Total: which represents a worsening of 1.4%. BD/Dexa Bone Density Study IMPRESSION: The patient is considered osteopenic as outlined below according to World Ruddy Organization (WHO) criteria with a low fracture risk. There has been worsening of bone density since the previous examination. Reference Information: The T-score is the number of standard deviations above or below the standard which is normal for young adults at their peak bone mineral density. The World Health Organization (WHO) interprets the T-scores as follows: Above -1 Normal bone density Between -1 and -2.5 Osteopenia Equal to / or below -2.5 Osteoporosis As a practical clinical guideline, osteopenia may be graded as follows: Mild -1 through -1.5 Moderate -1.6 through -2.0 Severe -2.1 through -2.4 The Z-score is the number of standard deviations above or below age-matched controls. A Z-score of less than -1.5 would be considered abnormal. References: 1. NIH Osteoporosis and Related Bone Diseases www osteo.org 2. International Society for Clinical Densitometry www iscd.org 3. National Osteoporosis Foundation www nof.org Electronically Signed: Mk Strong, at 15:38 EDT , Service support ,
== END ==
PROVIDERS: PCP Family Medicine Geriatric Medicine; Referring Provider Internal Medicine Endocrinology, Diabetes & Metabolism; Visit Provider Internal Medicine Endocrinology, Diabetes & Metabolism
DX: M81.0 Age-related osteoporosis without current pathological fracture (principal)
CPT/HCPCS: 77080

== ENCOUNTER → 2020-08-09 09:45 | Outpatient (CLI) | payer OTHER, SELFPAY ==
[2020-07-10 09:27] VITALS: BMI 27.6
[2020-08-09 12:41] LABS: Absolute Lymphocyte Count 1.38 X10^3/uL (0.83-4.51); Absolute Neutrophil Count 5.2 X10^3/uL (2.0-7.7); Basophil# 0.03 X10^3/uL; Basophil% 0.4 % (0-1); Eosinophil# 0.03 X10^3/uL; Eosinophils% 0.4 % (0-5); Hematocrit 47.1 % (40-54); Hemoglobin 15.3 g/dL (13.0-16.5); Lymphocyte # 1.38 X10^3/ul (4.0); Lymphocyte % 19.3 % (19-41); Mean Corp Hgb Conc 32.5 g/dL (32-36); Mean Corpuscular Hgb 28.7 pg (27.0-32.0); Mean Corpuscular Volume 88.2 fL (80-94); Mean Platelet Vol. 10.1 fl (6.2-12.0); Monocyte# 0.45 X10^3/uL; Monocyte% 6.3 % (0-10); NRBC Flagged by Analyzer 0 % (0-5); Neutrophil # 5.24 X10^3/uL (2.7-7.7); Neutrophil % 73.2 % (47-70); Platelet Count 334 K/mm3 (150-450); RBC Distribution Width CV 12.8 % (11.6-14.6); RBC Distribution Width SD 41.7 fl (35.1-43.9); Red Blood Count 5.34 M/mm3 (4.6-6.2); White Blood Count 7.2 K/mm3 (4.4-11.0)
[2020-08-09 13:26] LABS: AST(SGOT) 31 U/L (15-37); Alanine Aminotransfer ALT/SGPT 64 U/L (16-61); Albumin, Serum 3.8 g/dL (3.2-5.0); Alkaline Phosphatase 121 U/L (45-117); Anion Gap 5 (5-15); BUN 20 mg/dL (7-18); BUN/Creat Ratio 20.7 RATIO (10-20); Calcium,Total 9.1 mg/dL (8.5-10.1); Chloride 107 mmol/L (98-107); Creatinine, Serum 0.97 mg/dL (0.70-1.30); EST Glomerular Filtration Rate 86 mL/min (>60); Est Glom Filt Rate - Afr Amer 104 mL/min (>60); Globulin 3.8 g/dL (2.2-4.2); Glucose 102 mg/dL (74-106); Potassium 4.3 mmol/L (3.5-5.1); Protein, Total 7.6 g/dL (6.4-8.2); Sodium Level 138 mmol/L (136-145); Thyroid Stim Hormone (TSH) 0.85 uIU/mL (0.358-3.74)
[2020-08-10 13:56] LABS: Vitamin D,25 Hydroxy 43.6 ng/mL
== END ==
PROVIDERS: PCP Family Medicine Geriatric Medicine; Visit Provider Family Medicine Geriatric Medicine
DX: I10 Essential (primary) hypertension (principal); E55.9 Vitamin D deficiency, unspecified; E23.6 Other disorders of pituitary gland
CPT/HCPCS: 36415; 80053; 82306; 84403; 84443; 85025

== ENCOUNTER → 2020-09-13 10:21 | Outpatient (CLI) | payer OTHER, SELFPAY ==
[2020-07-10 09:27] VITALS: BMI 27.6
[2020-09-13 11:11] LABS: Amphetamine Urine VISTA NEGATIVE (<1000 ng/mL); Barbiturate Urine VISTA NEGATIVE (< 200 ng/mL); Benzodiazepine Urine VISTA NEGATIVE (< 200 ng/mL); Cocaine Urine VISTA NEGATIVE (< 300 ng/mL); Ecstacy Urine VISTA NEGATIVE (< 500 ng/mL); Methadone Urine VISTA NEGATIVE (< 300 ng/mL); PCP Urine VISTA NEGATIVE (< 25 ng/mL); THC Urine VISTA NEGATIVE (< 50 ng/mL); Vista UDS pH Range 5
[2020-09-13 11:24] LABS: ALB/GLOB Ratio 1.1 RATIO (0.9-2.4); AST(SGOT) 27 U/L (15-37); Alanine Aminotransfer ALT/SGPT 53 U/L (16-61); Albumin, Serum 4.2 g/dL (3.2-5.0); Alkaline Phosphatase 124 U/L (45-117); Anion Gap 5 (5-15); BUN 15 mg/dL (7-18); BUN/Creat Ratio 18.2 RATIO (10-20); Calcium,Total 8.9 mg/dL (8.5-10.1); Chloride 108 mmol/L (98-107); Creatinine, Serum 0.83 mg/dL (0.70-1.30); EST Glomerular Filtration Rate 103 mL/min (>60); Est Glom Filt Rate - Afr Amer 125 mL/min (>60); Globulin 3.9 g/dL (2.2-4.2); Glucose 92 mg/dL (74-106); Potassium 4.2 mmol/L (3.5-5.1); Protein, Total 8.1 g/dL (6.4-8.2); Sodium Level 141 mmol/L (136-145); Vitamin D,25 Hydroxy 64.8 ng/mL
== END ==
PROVIDERS: Internal Medicine Endocrinology, Diabetes & Metabolism; PCP Family Medicine Geriatric Medicine; Referring Provider Pain Medicine Interventional Pain Medicine; Visit Provider Pain Medicine Interventional Pain Medicine
DX: I10 Essential (primary) hypertension (principal); E55.9 Vitamin D deficiency, unspecified; M81.0 Age-related osteoporosis without current pathological fracture; Z79.891 Long term (current) use of opiate analgesic
CPT/HCPCS: 36415; 80053; 80307; 82306

== ENCOUNTER → 2020-12-11 11:36 | Outpatient (CLI) | payer OTHER, SELFPAY ==
[2020-07-10 09:27] VITALS: BMI 27.6
[2020-12-11 13:09] LABS: Amphetamine Urine VISTA NEGATIVE (<1000 ng/mL); Barbiturate Urine VISTA NEGATIVE (< 200 ng/mL); Benzodiazepine Urine VISTA NEGATIVE (< 200 ng/mL); Cocaine Urine VISTA NEGATIVE (< 300 ng/mL); Ecstacy Urine VISTA NEGATIVE (< 500 ng/mL); Methadone Urine VISTA NEGATIVE (< 300 ng/mL); PCP Urine VISTA NEGATIVE (< 25 ng/mL); THC Urine VISTA NEGATIVE (< 50 ng/mL); Vista UDS pH Range 5
== END ==
PROVIDERS: PCP Family Medicine Geriatric Medicine; Referring Provider Pain Medicine Interventional Pain Medicine; Visit Provider Pain Medicine Interventional Pain Medicine
DX: Z79.891 Long term (current) use of opiate analgesic (principal)
CPT/HCPCS: 80307

== ENCOUNTER → 2021-02-08 15:53 | Outpatient (CLI) | payer OTHER, SELFPAY ==
[2020-07-10 09:27] VITALS: BMI 27.6
[2021-02-08 16:42] LABS: Absolute Lymphocyte Count 1.84 X10^3/uL (0.83-4.51); Basophil# 0.04 X10^3/uL; Basophil% 0.5 % (0-1); Eosinophil# 0.08 X10^3/uL; Eosinophils% 0.9 % (0-5); Hematocrit 42.7 % (40-54); Hemoglobin 14.1 g/dL (13.0-16.5); Lymphocyte # 1.84 X10^3/ul (0.83-4.51); Lymphocyte % 20.9 % (19-41); Mean Corpuscular Hgb 29.9 pg (27.0-32.0); Mean Corpuscular Volume 90.7 fL (80-94); Mean Platelet Vol. 9.7 fl (6.2-12.0); Monocyte# 0.77 X10^3/uL; Monocyte% 8.7 % (0-10); NRBC Flagged by Analyzer 0 % (0-5); Neutrophil # 6.01 X10^3/uL (2.7-7.7); Neutrophil % 68.2 % (47-70); Platelet Count 340 K/mm3 (150-450); RBC Distribution Width CV 13.3 % (11.6-14.6); RBC Distribution Width SD 43.9 fl (35.1-43.9); Red Blood Count 4.71 M/mm3 (4.6-6.2); White Blood Count 8.8 K/mm3 (4.4-11.0)
[2021-02-08 17:09] LABS: Vitamin D,25 Hydroxy 52.7 ng/mL
[2021-02-08 18:12] LABS: ALB/GLOB Ratio 1.3 RATIO (0.9-2.4); AST(SGOT) 24 U/L (15-37); Alanine Aminotransfer ALT/SGPT 45 U/L (16-61); Alkaline Phosphatase 99 U/L (45-117); Anion Gap 10 (5-15); BUN 26 mg/dL (7-18); BUN/Creat Ratio 28.3 RATIO (10-20); Calcium,Total 9.1 mg/dL (8.5-10.1); Chloride 106 mmol/L (98-107); Creatinine, Serum 0.92 mg/dL (0.70-1.30); EST Glomerular Filtration Rate 91 mL/min (>60); Est Glom Filt Rate - Afr Amer 110 mL/min (>60); Globulin 3.1 g/dL (2.2-4.2); Glucose 81 mg/dL (74-106); PSA,Total - Annual Screen 0.52 ng/mL (0.00-4.00); Potassium 4.2 mmol/L (3.5-5.1); Protein, Total 7.1 g/dL (6.4-8.2); Sodium Level 143 mmol/L (136-145); Thyroid Stim Hormone (TSH) 1.27 uIU/mL (0.358-3.74)
== END ==
PROVIDERS: PCP Family Medicine Geriatric Medicine; Visit Provider Family Medicine Geriatric Medicine
DX: I10 Essential (primary) hypertension (principal); E23.6 Other disorders of pituitary gland; E55.9 Vitamin D deficiency, unspecified; Z12.5 Encounter for screening for malignant neoplasm of prostate
CPT/HCPCS: 36415; 80053; 82306; 84153; 84403; 84443; 85025; G0103

== ENCOUNTER → 2021-04-02 14:36 | Outpatient (CLI) | payer OTHER, SELFPAY ==
[2020-07-10 09:27] VITALS: BMI 27.6
--- NOTE | 2021-04-02 14:49 | RAD_ITS ---
STUDY: X-RAY CHEST REASON FOR EXAM: Male, 56 years old. Pain in thoracic spine TECHNIQUE: PA and lateral views of the chest. COMPARISON: 10/01/2018 FINDINGS: The lungs are clear and expanded. There is no demonstrated pleural abnormality. Normal size heart. Normal mediastinum and binta. Normal visualized pulmonary arteries. Normal visualized aortic arch and descending thoracic aorta. Normal visualized thoracic spine. Normal visualized ribs, clavicles, and shoulders. There is no demonstrated abnormality of the visualized soft tissue structures of the upper abdomen. RAD/Chest PA and Lateral IMPRESSION: Normal x-ray examination of the chest. Electronically Signed: Edwardo Kruse MD at 15:22 EDT Tel , Service support ,
--- NOTE | 2021-04-02 14:55 | RAD_ITS ---
STUDY: X-RAY - THORACIC SPINE REASON FOR EXAM: Male, 56 years old. Pain in thoracic spine TECHNIQUE: 3 view(s) of the thoracic spine were obtained. COMPARISON: 03/16/2019 FINDINGS: Normal kyphosis of the thoracic spine. There is no substantial scoliosis. Normal thoracic vertebrae and endplates. Normal disc space heights. The soft tissue structures are unremarkable. RAD/Thoracic Spine 3 Views IMPRESSION: Normal x-ray examination of the thoracic spine. Electronically Signed: Edwardo Kruse MD at 15:22 EDT Tel , Service support ,
== END ==
PROVIDERS: PCP Family Medicine Geriatric Medicine; Referring Provider Family Medicine Geriatric Medicine; Visit Provider Family Medicine Geriatric Medicine
DX: M54.6 Pain in thoracic spine (principal)
CPT/HCPCS: 71046; 72072

== ENCOUNTER → 2021-04-10 10:40 | Outpatient (CLI) | payer OTHER, SELFPAY ==
[2020-07-10 09:27] VITALS: BMI 27.6
== END ==
PROVIDERS: PCP Family Medicine Geriatric Medicine; Referring Provider Pain Medicine Interventional Pain Medicine; Visit Provider Pain Medicine Interventional Pain Medicine
DX: Z79.891 Long term (current) use of opiate analgesic (principal)

== ENCOUNTER → 2021-05-15 09:24 | Outpatient (CLI) | payer OTHER, SELFPAY ==
[2021-05-04 07:07] VITALS: BMI 28.0
--- NOTE | 2021-05-16 09:44 | PFT ---
INTRODUCTION: The patient is a 56-year-old male that presents for pulmonary function studies secondary to a diagnosis of dyspnea. Respiratory therapy reported good patient effort. Bronchodilators were used during testing. INTERPRETATION: Forced expiration spirometry demonstrates no evidence of a large airways obstructive ventilatory defect. There was no significant response to aerosolized bronchodilators. Spirograms are of good quality and plateau normally. Body plethysmography was performed and reveals lung volumes to be within normal limits. Diffusing capacity by single breath CO is also within normal limits. IMPRESSION: Grossly normal pulmonary function studies.
== END ==
PROVIDERS: PCP Family Medicine Geriatric Medicine; Referring Provider Internal Medicine Critical Care Medicine; Visit Provider Internal Medicine Critical Care Medicine
DX: R06.00 Dyspnea, unspecified (principal); G47.10 Hypersomnia, unspecified
CPT/HCPCS: 94060; 94726; 94729

== ENCOUNTER → 2021-05-25 11:32 | Outpatient (CLI) | payer OTHER, SELFPAY ==
[2021-05-04 07:07] VITALS: BMI 28.0
== END ==
PROVIDERS: PCP Family Medicine Geriatric Medicine; Referring Provider Internal Medicine Critical Care Medicine; Visit Provider Internal Medicine Critical Care Medicine
DX: R06.00 Dyspnea, unspecified (principal); G47.10 Hypersomnia, unspecified
CPT/HCPCS: 95806

== ENCOUNTER → 2021-08-09 11:02 | Outpatient (CLI) | payer OTHER, SELFPAY ==
[2021-08-09 12:34] LABS: Absolute Lymphocyte Count 1.33 X10^3/uL (0.83-4.51); Absolute Neutrophil Count 3.5 X10^3/uL (2.0-7.7); Basophil# 0.04 X10^3/uL; Basophil% 0.7 % (0-1); Eosinophil# 0.04 X10^3/uL; Eosinophils% 0.7 % (0-5); Hematocrit 42.2 % (40-54); Hemoglobin 13.8 g/dL (13.0-16.5); Lymphocyte # 1.33 X10^3/ul (0.83-4.51); Lymphocyte % 24.1 % (19-41); Mean Corp Hgb Conc 32.7 g/dL (32-36); Mean Corpuscular Hgb 27.9 pg (27.0-32.0); Mean Corpuscular Volume 85.4 fL (80-94); Mean Platelet Vol. 10.1 fl (6.2-12.0); Monocyte# 0.61 X10^3/uL; NRBC Flagged by Analyzer 0 % (0-5); Neutrophil # 3.48 X10^3/uL (2.7-7.7); Platelet Count 355 K/mm3 (150-450); RBC Distribution Width SD 43.6 fl (35.1-43.9); Red Blood Count 4.94 M/mm3 (4.6-6.2); White Blood Count 5.5 K/mm3 (4.4-11.0)
[2021-08-09 12:59] LABS: AST(SGOT) 28 U/L (15-37); Alanine Aminotransfer ALT/SGPT 44 U/L (16-61); Albumin, Serum 3.7 g/dL (3.2-5.0); Alkaline Phosphatase 104 U/L (45-117); Anion Gap 7 (5-15); BUN 19 mg/dL (7-18); Calcium,Total 8.7 mg/dL (8.5-10.1); Chloride 106 mmol/L (98-107); EST Glomerular Filtration Rate 82 mL/min (>60); Est Glom Filt Rate - Afr Amer 100 mL/min (>60); Globulin 3.7 g/dL (2.2-4.2); Glucose 81 mg/dL (74-106); Potassium 4.2 mmol/L (3.5-5.1); Protein, Total 7.4 g/dL (6.4-8.2); Sodium Level 138 mmol/L (136-145); Thyroid Stim Hormone (TSH) 1.35 uIU/mL (0.358-3.74)
[2021-08-09 14:24] LABS: Vitamin D,25 Hydroxy 51.4 ng/mL
== END ==
PROVIDERS: PCP Family Medicine Geriatric Medicine; Visit Provider Family Medicine Geriatric Medicine
DX: I10 Essential (primary) hypertension (principal); E23.6 Other disorders of pituitary gland; E55.9 Vitamin D deficiency, unspecified
CPT/HCPCS: 36415; 80053; 82306; 84403; 84443; 85025

== ENCOUNTER → 2021-09-05 11:23 | Outpatient (CLI) | payer OTHER, SELFPAY ==
[2021-09-05 13:52] LABS: Amphetamine Urine VISTA NEGATIVE (<1000 ng/mL); Barbiturate Urine VISTA NEGATIVE (< 200 ng/mL); Benzodiazepine Urine VISTA NEGATIVE (< 200 ng/mL); Cocaine Urine VISTA NEGATIVE (< 300 ng/mL); Ecstacy Urine VISTA NEGATIVE (< 500 ng/mL); Methadone Urine VISTA NEGATIVE (< 300 ng/mL); PCP Urine VISTA NEGATIVE (< 25 ng/mL); THC Urine VISTA NEGATIVE (< 50 ng/mL); Vista UDS pH Range 5
== END ==
PROVIDERS: PCP Family Medicine Geriatric Medicine; Visit Provider Pain Medicine Interventional Pain Medicine
DX: Z79.891 Long term (current) use of opiate analgesic (principal)
CPT/HCPCS: 80307

== ENCOUNTER 2021-09-15 10:24 | Emergency (ER) | payer OTHER, SELFPAY ==
[2021-09-15 10:25] VITALS: BP 135/81; PULSE 65; RESP 18; TEMP 36.3; O2SAT 99; BMI 27.9
--- NOTE | 2021-09-15 11:06 | RAD_ITS ---
History: injury -- index finger Left second finger 3 views: Findings: No fracture or subluxation. Joint spaces and soft tissues are normal. IMPRESSION: No acute abnormality. at 1142 Reported and signed by: Cash Fields MD Electronically Signed: Cash Fields MD at 11:41 EST Tel , Service support , RAD/Finger(s) Min 2 Views
--- NOTE | 2021-09-15 11:07 | EX.ED.UPPERE ---
HPI History of Present Illness Chief Complaint: Laceration Informant: patient Onset/Context/Timing Onset: Today Current Severity: Moderate Narrative Narrative: Left index finger laceration after catching it on a nut grinder at home. Patient is right-hand dominant. Last tetanus shot 6 years ago. Patient denies any other injury. [facility] Medical History (Updated 09/15/21 @ 11:[address] 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 Q48H 08/06/13 [History Last Taken 04/26/16] multivitamin with folic acid 1 tab PO DAILY 08/06/13 [History Last Taken 04/27/16] oxycodone-acetaminophen 1 - 2 tab PO Q6H PRN PRN 08/06/13 [History Last Taken 04/27/16] atorvastatin 40 mg tablet 40 mg PO QDAY 03/03/18 [History Last Taken 05/08/18] clopidogrel 75 mg tablet 75 mg PO QDAY 03/03/18 [History Last Taken 05/08/18] melatonin 10 mg capsule 15 mg PO HS cap 07/19/19 [History Last Taken Unknown] Allergy/AdvReac Type Severity Reaction Status Date / Time varenicline [From Chantix] AdvReac Mild Itching Verified 09/15/21 10:27 Family History Sister Hypertension Grandfather Diabetes Surgical History H/O vasectomy History of spinal fusion History of total right hip arthroplasty S/P carpal tunnel release Social History Smoking Status: Never smoker Smokeless tobacco user: snuff alcohol intake: current alcohol intake frequency: holidays/special occasions only ROS ROS ED Constitutional Constitutional ED: Denies chills or fever(s) ENT ENT ED: Denies sore throat Cardiovascular Cardiovascular: Denies chest pain Respiratory/Chest Respiratory/Chest: Denies cough or dyspnea Gastrointestinal Gastrointestinal: Denies abdominal pain, nausea or vomiting Genitourinary Genitourinary ED: Reports dysuria Musculoskeletal Musculoskeletal: Denies back pain Integumentary Reports other Details: Left index finger laceration ; Denies rash Neurologic Neurologic: Denies headache(s), paresthesias or weakness Allergic/Immunologic Allergic/Immunologic ED: Denies urticaria EXAM Physical Exam Const Vital Signs: 09/15/21 10:25 Temperature 97.3 F L Temperature Source Temporal Pulse Rate 65 Respiratory Rate 18 Blood Pressure 135/81 H Blood Pressure Mean 99 Pulse Ox 99 Oxygen Delivery Method Room Air Positive well nourished and well developed General Appearance ED: well developed Eyes PERRL Chest Wall inspection of chest normal and palpation of chest normal Resp normal respiratory effort and clear to auscultation bilaterally Cardio regular rate and regular rhythm GI non-tender Palpation: soft Extremity Extremity Narrative: 3 cm L-shaped laceration to the left index finger over the middle and distal phalanx. Bleeding well controlled at this time. Good range of motion and cap refill distally. Good sensation. Skin Skin Narrative: Left index finger laceration as noted above. MDM MDM Treatment and Re-Evaluation Comments:: Tetanus update provided. Left finger x-rays reveal no obvious fracture per my review. Patient is neurovascularly intact. Laceration sutured. Please see procedure note for details. Patient to follow-up in 1 week for suture removal. Procedures Lacerations Left index finger laceration: Length: 1.18 in Depth: Sub Q Shape: Flap Prep: Kirsty Laceration repair: Digital block, Irrigated, Lidocaine and Nerve block Number of Sutures/Gilberto: 6 Suture Information: Ethilon and 4-0 Comment: Digital block performed with 5 cc of 1% lidocaine. Proximal tourniquet placed on finger. Wound cleansed and irrigated. 6 simple interrupted sutures of 4-0 nylon placed with good approximation. Dressing applied and wound care discussed. Discharge Plan Triage Chief Complaint: Laceration ED Provider: Radha Logan Dx/Rx/DC Orders Clinical Impression: Finger laceration Instructions: ED Laceration, Hand: All Closures Prescriptions: No Action clopidogrel [Plavix] 75 mg tablet 75 mg PO QDAY RF: 0 atorvastatin [Lipitor] 40 mg tablet 40 mg PO QDAY RF: 0 melatonin 10 mg capsule 15 mg PO HS RF: 0 oxycodone-acetaminophen 1 TABLET tablet 1 - 2 tab PO Q6H PRN PRN (Reason: Pain) RF: 0 ascorbic acid (vitamin C) 500 MG tablet 500 mg PO DAILY@0800 RF: 0 fentanyl 25 MCG patch 12 mcg TRANSDERM. Q48H RF: 0 cholecalciferol (vitamin D3) 1,000 UNIT tablet,chewable 1 tab PO DAILY RF: 0 multivitamin with folic acid 1 TABLET tablet 1 tab PO DAILY RF: 0 calcium carbonate-vitamin D3 1 TAB tablet 2 tab PO DAILY@0800 RF: 0 Primary Care Provider: Marv aNvarrete Chi Referrals: Marv Navarrete Chi, MD [Primary Care Provider] - 7 Days for suture removal Disposition Disposition: Home, Self Care
[2021-09-15] MEDS: Diphth,Pertuss(Acell),Tet Vac 0.5 ML Vial IM (11:21)
[2021-09-15] MEDS: Lidocaine 1% (20 ml mdv) 20 ML Vial INFILT (11:22)
== END 2021-09-15 12:00 | disposition home or self-care (01) ==
PROVIDERS: Emergency Provider Emergency Medicine; PCP Family Medicine Geriatric Medicine
DX: S61.211A Laceration without foreign body of left index finger without damage to nail, initial encounter (principal); Z23 Encounter for immunization; W31.89XA Contact with other specified machinery, initial encounter; Y93.9 Activity, unspecified; Y92.9 Unspecified place or not applicable; Y99.9 Unspecified external cause status; I10 Essential (primary) hypertension; E78.00 Pure hypercholesterolemia, unspecified; E78.1 Pure hyperglyceridemia; M19.90 Unspecified osteoarthritis, unspecified site; N25.81 Secondary hyperparathyroidism of renal origin; E55.9 Vitamin D deficiency, unspecified; F17.220 Nicotine dependence, chewing tobacco, uncomplicated; Z79.02 Long term (current) use of antithrombotics/antiplatelets; Z79.899 Other long term (current) drug therapy
CPT/HCPCS: 12002; 73140; 90471; 90715; 99284

== ENCOUNTER 2021-10-08 11:03 | Outpatient (CLI) | payer OTHER, SELFPAY | END 2021-10-08 23:59 | disposition short-term general hospital (02) | LOC: LAB 11:04 | PROVIDERS: PCP Family Medicine Geriatric Medicine; Referring Provider Pain Medicine Interventional Pain Medicine; Visit Provider Pain Medicine Interventional Pain Medicine | DX: Z79.891 Long term (current) use of opiate analgesic (principal) ==

== ENCOUNTER → 2022-01-28 | Outpatient (CLI) | payer OTHER, SELFPAY ==
[2022-01-28 10:18] LABS: Amphetamine Urine VISTA NEGATIVE (<1000 ng/mL); Barbiturate Urine VISTA NEGATIVE (< 200 ng/mL); Benzodiazepine Urine VISTA NEGATIVE (< 200 ng/mL); Cocaine Urine VISTA NEGATIVE (< 300 ng/mL); Ecstacy Urine VISTA NEGATIVE (< 500 ng/mL); Methadone Urine VISTA NEGATIVE (< 300 ng/mL); PCP Urine VISTA NEGATIVE (< 25 ng/mL); THC Urine VISTA NEGATIVE (< 50 ng/mL); Vista UDS pH Range 6
== END | disposition home or self-care (01) ==
PROVIDERS: PCP Family Medicine Geriatric Medicine; Visit Provider Pain Medicine Interventional Pain Medicine
DX: Z79.891 Long term (current) use of opiate analgesic (principal)
CPT/HCPCS: 80307

== ENCOUNTER → 2022-02-14 | Outpatient (CLI) | payer OTHER, SELFPAY ==
[2022-02-14 12:16] LABS: Absolute Lymphocyte Count 1.36 X10^3/uL (0.83-4.51); Absolute Neutrophil Count 4.1 X10^3/uL (2.0-7.7); Basophil# 0.02 X10^3/uL; Basophil% 0.3 % (0-1); Eosinophil# 0.03 X10^3/uL; Eosinophils% 0.5 % (0-5); Hematocrit 43.5 % (40-54); Hemoglobin 15.3 g/dL (13.0-16.5); Lymphocyte # 1.36 X10^3/ul (0.83-4.51); Lymphocyte % 22.1 % (19-41); Mean Corp Hgb Conc 35.2 g/dL (32-36); Mean Corpuscular Hgb 30.3 pg (27.0-32.0); Mean Corpuscular Volume 86.1 fL (80-94); Mean Platelet Vol. 9.9 fl (6.2-12.0); Monocyte# 0.57 X10^3/uL; Monocyte% 9.3 % (0-10); NRBC Flagged by Analyzer 0 % (0-5); Neutrophil # 4.13 X10^3/uL (2.7-7.7); Platelet Count 318 K/mm3 (150-450); RBC Distribution Width CV 13.2 % (11.6-14.6); RBC Distribution Width SD 41.4 fl (35.1-43.9); Red Blood Count 5.05 M/mm3 (4.6-6.2); White Blood Count 6.2 K/mm3 (4.4-11.0)
[2022-02-14 12:39] LABS: ALB/GLOB Ratio 1.1 RATIO (0.9-2.4); AST(SGOT) 35 U/L (15-37); Alanine Aminotransfer ALT/SGPT 63 U/L (16-61); Alkaline Phosphatase 101 U/L (45-117); Anion Gap 6 (5-15); BUN 16 mg/dL (7-18); BUN/Creat Ratio 18.5 RATIO (10-20); Calcium,Total 9.1 mg/dL (8.5-10.1); Chloride 107 mmol/L (98-107); Creatinine, Serum 0.86 mg/dL (0.70-1.30); EST Glomerular Filtration Rate 97 mL/min (>60); Est Glom Filt Rate - Afr Amer 118 mL/min (>60); Globulin 3.5 g/dL (2.2-4.2); Glucose 91 mg/dL (74-106); PSA,Total - Annual Screen 0.63 ng/mL (0.00-4.00); Potassium 4.2 mmol/L (3.5-5.1); Protein, Total 7.5 g/dL (6.4-8.2); Sodium Level 139 mmol/L (136-145); Thyroid Stim Hormone (TSH) 1.06 uIU/mL (0.358-3.74)
== END | disposition home or self-care (01) ==
LOC: POLAB3 09:29
PROVIDERS: PCP Family Medicine Geriatric Medicine; Visit Provider Family Medicine Geriatric Medicine
DX: I10 Essential (primary) hypertension (principal); Z12.5 Encounter for screening for malignant neoplasm of prostate
CPT/HCPCS: 36415; 80053; 84153; 84443; 85025; G0103

== ENCOUNTER → 2022-04-16 | Outpatient (CLI) | payer OTHER, SELFPAY ==
[2022-04-16 11:33] LABS: Amphetamine Urine VISTA NEGATIVE (<1000 ng/mL); Barbiturate Urine VISTA NEGATIVE (< 200 ng/mL); Benzodiazepine Urine VISTA NEGATIVE (< 200 ng/mL); Cocaine Urine VISTA NEGATIVE (< 300 ng/mL); Ecstacy Urine VISTA NEGATIVE (< 500 ng/mL); Methadone Urine VISTA NEGATIVE (< 300 ng/mL); PCP Urine VISTA NEGATIVE (< 25 ng/mL); THC Urine VISTA NEGATIVE (< 50 ng/mL); Vista UDS pH Range 5
== END | disposition home or self-care (01) ==
PROVIDERS: PCP Family Medicine Geriatric Medicine; Referring Provider Pain Medicine Interventional Pain Medicine; Visit Provider Pain Medicine Interventional Pain Medicine
DX: Z79.891 Long term (current) use of opiate analgesic (principal)
CPT/HCPCS: 80307

== ENCOUNTER → 2022-09-03 | Outpatient (CLI) | payer OTHER, SELFPAY ==
[2022-09-03 16:59] LABS: Amphetamine Urine VISTA NEGATIVE (<1000 ng/mL); Barbiturate Urine VISTA NEGATIVE (< 200 ng/mL); Benzodiazepine Urine VISTA NEGATIVE (< 200 ng/mL); Cocaine Urine VISTA NEGATIVE (< 300 ng/mL); Ecstacy Urine VISTA NEGATIVE (< 500 ng/mL); Methadone Urine VISTA NEGATIVE (< 300 ng/mL); PCP Urine VISTA NEGATIVE (< 25 ng/mL); THC Urine VISTA NEGATIVE (< 50 ng/mL); Vista UDS pH Range 7
== END | disposition home or self-care (01) ==
LOC: LAB 15:30
PROVIDERS: PCP Family Medicine Geriatric Medicine; Visit Provider Pain Medicine Interventional Pain Medicine
DX: Z51.81 Encounter for therapeutic drug level monitoring (principal)
CPT/HCPCS: 80307

== ENCOUNTER → 2023-01-20 | Outpatient (CLI) | payer OTHER, SELFPAY ==
[2023-01-20 09:49] LABS: Amphetamine Urine VISTA NEGATIVE (<1000 ng/mL); Barbiturate Urine VISTA NEGATIVE (< 200 ng/mL); Benzodiazepine Urine VISTA NEGATIVE (< 200 ng/mL); Cocaine Urine VISTA NEGATIVE (< 300 ng/mL); Ecstacy Urine VISTA NEGATIVE (< 500 ng/mL); Methadone Urine VISTA NEGATIVE (< 300 ng/mL); PCP Urine VISTA NEGATIVE (< 25 ng/mL); THC Urine VISTA NEGATIVE (< 50 ng/mL); Vista UDS pH Range 6
== END | disposition home or self-care (01) ==
LOC: LAB 09:10
PROVIDERS: PCP Family Medicine Geriatric Medicine; Referring Provider Pain Medicine Interventional Pain Medicine; Visit Provider Pain Medicine Interventional Pain Medicine
DX: Z51.81 Encounter for therapeutic drug level monitoring (principal)
CPT/HCPCS: 80307

== ENCOUNTER 2023-02-08 17:46 | Emergency (ER) | payer OTHER, SELFPAY ==
[2023-02-08 17:46] VITALS: BP 130/82; PULSE 78; RESP 16; TEMP 36.6; O2SAT 97; BMI 29.0
[2023-02-08] MEDS: Cephalexin 250 MG Capsule 500 MG PO (18:24)
[2023-02-08] MEDS: Lidocaine 1% (20 ml mdv) 20 ML Vial INFILT (18:25)
--- NOTE | 2023-02-08 18:43 | EDS_ITS ---
HPI <PAT Wheatley - Last Filed: 02/08/23 18:51> History of Present Illness Chief Complaint: Foreign Body Narrative Narrative: Patient is a 58-year-old male with history of CVA, COPD who presents to the emergency department after sustaining a injury to the left fifth finger. Patient states that he was working with wood, when he thought he has a splinter. He noted some discoloration to the pad of the fifth finger so he started pushing on it, I could not see any splinter. He then continue to work however the tip of his finger got more red and swollen today and he was concerned for infection. His last tetanus vaccination was 1 year ago. 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 Hx of prostatitis Hypercholesterolemia with hyperglyceridemia Hyperlipidemia Male hypogonadism Osteoarthritis Osteoporosis Secondary hyperparathyroidism Vitamin D deficiency Home Medications calcium carbonate 600 mg-vitamin D3 20 mcg (800 unit) tablet 2 tab PO DAILY@0800 08/06/13 [History Last Taken 04/27/16] cholecalciferol (vitamin D3) 25 mcg (1,000 unit) chewable tablet 1 tab PO DAILY 08/06/13 [History Last Taken 04/27/16] oxycodone-acetaminophen 5 mg-325 mg tablet 1 - 2 tab PO Q6H PRN PRN Pain 08/06/13 [History Last Taken 04/27/16] atorvastatin 40 mg tablet (Lipitor) 40 mg PO QDAY 03/03/18 [History Last Taken 05/08/18] clopidogrel 75 mg tablet (Plavix) 75 mg PO QDAY 03/03/18 [History Last Taken 05/08/18] aspirin 81 mg tablet,delayed release (Adult Aspirin Regimen) 81 mg PO DAILY 06/28/22 [History Last Taken Unknown] echinacea 380 mg capsule 380 mg PO DAILY 06/28/22 [History Last Taken Unknown] magnesium oxide 400 mg PO DAILY 06/28/22 [History Last Taken Unknown] melatonin 5 mg capsule 5 mg PO .prn 06/28/22 [History Last Taken Unknown] vitamin B complex (B Complex-Vitamin B12 tablet) 1 tab PO DAILY 06/28/22 [History Last Taken Unknown] cephalexin 500 mg capsule 500 mg PO Q6 #20 CAPSULES 02/08/23 [Rx Last Taken Unknown] Allergy/AdvReac Type Severity Reaction Status Date / Time varenicline [From Chantix] AdvReac Mild Itching Verified 02/08/23 17:49 Family History Sister Hypertension Grandfather Diabetes Surgical History H/O vasectomy History of carpal tunnel release History of spinal fusion History of total right hip arthroplasty Social History Smoking Status: Never smoker Smokeless tobacco user: snuff alcohol intake: current alcohol intake frequency: holidays/special occasions only ROS <PAT Wheatley - Last Filed: 02/08/23 18:51> ROS ED ROS Narrative Constitutional: Negative for fever, chills, weight loss, weakness Eyes: Negative for vision loss, vision change, double vision ENT: Negative for any sore throat, ear pain, congestion Cardiovascular: Negative for any chest pain, tightness, palpitations Respiratory: Negative for any cough, sputum production, hemoptysis, dyspnea, dyspnea on exertion, orthopnea Gastrointestinal: Negative for any abdominal pain, nausea, vomiting, diarrhea, constipation, blood in stool, blood in vomit : Negative for any urinary frequency, dysuria, retention, blood in urine Muscle skeletal: Negative for any muscle joint pain, stiffness, myalgias, arthralgias, neck pain, back pain. Positive for left fifth digit pain Neurological: Negative for any headache, syncope, numbness or tingling, dizziness Skin: Negative for any rashes, lumps, itching, abrasions, lacerations Psychiatric: Negative for any depression, anxiety, stress, suicidal ideation, homicidal ideation Hematologic: Negative for any easy bruising, excessive bruising, easy bleeding Allergies: Negative for any eczema, hives, rash EXAM <PAT Wheatley - Last Filed: 02/08/23 18:51> Physical Exam Narrative Exam Narrative: Vital signs reviewed. HEET: Head normocephalic atraumatic, TMs clear bilaterally. Posterior pharynx is clear, moist mucous membranes. Nares clear bilaterally. Neck: Supple with no lymphadenopathy or tenderness. No signs of meningismus, negative jolt sign. Cardiac: Regular rate and rhythm no murmurs gallops or rubs, equal peripheral pulses bilaterally. Respiratory: Lungs clear to auscultation bilaterally. No chest tenderness. Abdomen: Soft, nontender, nondistended. No abdominal bruit or pulsatile masses. No hepatosplenomegaly Extremities: No peripheral edema, no signs of gross trauma or deformity. Active full range of motion of all extremities. Patient has some discoloration around the pad of the fifth digit on the left hand. I did look at the extremity, it was unclear whether there was a splinter still in the finger. There was some discoloration of the skin. Slight erythema around the area. No signs of deep tissue infection. Patient has good range of motion Neuro: Cranial nerves II through XII intact, no focal neurological deficits. Skin: Clean dry and intact with no rash, purpura, petechiae, vesicles or pustules. Backs/flank: No CVA tenderness, no midline spinal tenderness, no deformity. Psych: Normal mood and affect. No SI, HI or acute psychosis. Const Vital Signs: 02/08/23 17:46 02/08/23 18:08 Temperature 97.8 F Temperature Source Temporal Pulse Rate 78 Respiratory Rate 16 Respiratory Pattern Normal Blood Pressure 130/82 H Blood Pressure Mean 98 Pulse Ox 97 Oxygen Delivery Method Room Air <Dr. Jurgen Antunez MD - Last Filed: 02/08/23 19:01> Physical Exam Const Vital Signs: 02/08/23 17:46 02/08/23 18:08 Temperature 97.8 F Temperature Source Temporal Pulse Rate 78 Respiratory Rate 16 Respiratory Pattern Normal Blood Pressure 130/82 H Blood Pressure Mean 98 Pulse Ox 97 Oxygen Delivery Method Room Air MDM <PAT Wheatley - Last Filed: 02/08/23 18:51> MDM Treatment and Re-Evaluation :: Patient appears well, patient appears nontoxic, vital signs are stable. Patient presents to the emergency department after sustaining a splinter to the left fifth finger. It was unclear whether there was a splinter, there was some discoloration of tissue. I did perform a digital block on the fifth digit, I used a 18-gauge needle to lift up the flap and explore the area, there seem to be no splinter. I then irrigated with normal saline. After dressing, clean the area, applying pressure, the discoloration was gone. I do not believe that there is a foreign body currently in the patient's finger. Consider an x-ray of the hand however would does not show up well on x-ray. At this time, patient was given a Keflex here, he will be placed on Kefle 4 times a day for 5 days. Tetanus is up-to-date. At this time, I believe the patient stable for discharge, he was given return precautions <Dr. Jurgen Antunez MD - Last Filed: 02/08/23 19:01> [facility] MDM Narrative Medical decision making narrative: I have personally performed a face to face assessment of the patient and have reviewed the DOLLY Note. I performed a substantive portion of the visit including all aspects of the following. My frausto findings include: History: Patient got a splinter of pressure-treated lumber in the tip of his small finger. Was not able to get it out. Has some swelling and irritation. He is not diabetic. He is on Plavix Exam: There is some mild swelling. I can see what looks to be a puncture wound. But I cannot feel any item in there. There is a little bit of erythema and swelling. Range of motion is intact Medical Decision Making: Area was cleansed. We tried to get any splinter out but we do not feel anything. However, we do not want to make a significant incision into the distal tuft of his finger to look for a foreign object that may not be there. We explained that x-rays do not show wood objects well at all. We will get him on antibiotics. I explained that this may worsen. He may end up even needing to be admitted or have surgery. But at this point we would not do significant incision into his finger to look for this. Discharge Plan Triage Chief Complaint: Foreign Body ED Midlevel Provider: Abdelrahman Tucker ED Provider: Jurgen Antunez Dx/Rx/DC Orders Clinical Impression: Finger injury Instructions: Cellulitis Prescriptions: New cephalexin 500 mg capsule 500 mg PO Q6 Qty: 20 0RF No Action clopidogrel [Plavix] 75 mg tablet 75 mg PO QDAY atorvastatin [Lipitor] 40 mg tablet 40 mg PO QDAY aspirin [Adult Aspirin Regimen] 81 mg tablet,delayed release (DR/EC) 81 mg PO DAILY vitamin B complex [B Complex-Vitamin B12] Tablet 1 tab PO DAILY magnesium oxide 400 mg magnesium tablet 400 mg PO DAILY echinacea 380 mg capsule 380 mg PO DAILY Rx Instructions: administer with meals melatonin 5 mg capsule 5 mg PO .prn oxycodone-acetaminophen 1 TABLET tablet 1 - 2 tab PO Q6H PRN PRN (Reason: Pain) cholecalciferol (vitamin D3) 1,000 UNIT tablet,chewable 1 tab PO DAILY calcium carbonate-vitamin D3 1 TAB tablet 2 tab PO DAILY@0800 Primary Care Provider: Marv Navarrete Chi Referrals: Marv Navarrete Chi, MD [Primary Care Provider] - Activity Restrictions/Additional Instructions: Keep the area clean and dry. Take antibiotics until finished. If there is more redness, drainage, the redness streaks up your finger to your hand please return Disposition Disposition: Home, Self Care
[2023-02-08 18:59] VITALS: BP 134/66; PULSE 64; RESP 16; TEMP 36.6; O2SAT 100
== END 2023-02-08 19:00 | disposition home or self-care (01) ==
PROVIDERS: Emergency Provider Emergency Medicine; PCP Family Medicine Geriatric Medicine; Visit Provider Emergency Medicine
DX: L03.012 Cellulitis of left finger (principal); J44.9 Chronic obstructive pulmonary disease, unspecified; E78.00 Pure hypercholesterolemia, unspecified; Z86.73 Personal history of transient ischemic attack (TIA), and cerebral infarction without residual deficits
CPT/HCPCS: 99283

== ENCOUNTER → 2023-02-17 | Outpatient (CLI) | payer OTHER, SELFPAY ==
[2023-02-17 12:58] LABS: Absolute Lymphocyte Count 1.24 X10^3/uL (0.83-4.51); Absolute Neutrophil Count 3.4 X10^3/uL (2.0-7.7); Basophil# 0.03 X10^3/uL; Basophil% 0.6 % (0-1); Eosinophil# 0.03 X10^3/uL; Eosinophils% 0.6 % (0-5); Hematocrit 45.6 % (40-54); Hemoglobin 15.2 g/dL (13.0-16.5); Lymphocyte # 1.24 X10^3/ul (0.83-4.51); Lymphocyte % 23.1 % (19-41); Mean Corp Hgb Conc 33.3 g/dL (32-36); Mean Corpuscular Hgb 30.3 pg (27.0-32.0); Mean Corpuscular Volume 90.8 fL (80-94); Monocyte# 0.64 X10^3/uL; Monocyte% 11.9 % (0-10); NRBC Flagged by Analyzer 0 % (0-5); Neutrophil # 3.39 X10^3/uL (2.7-7.7); Neutrophil % 63.2 % (47-70); Platelet Count 307 K/mm3 (150-450); RBC Distribution Width CV 12.9 % (11.6-14.6); RBC Distribution Width SD 43.1 fl (35.1-43.9); Red Blood Count 5.02 M/mm3 (4.6-6.2); White Blood Count 5.4 K/mm3 (4.4-11.0)
[2023-02-17 13:38] LABS: ALB/GLOB Ratio 1.2 RATIO (0.9-2.4); AST(SGOT) 37 U/L (15-37); Alanine Aminotransfer ALT/SGPT 62 U/L (16-61); Alkaline Phosphatase 101 U/L (45-117); Anion Gap 8 (5-15); BUN 19 mg/dL (7-18); BUN/Creat Ratio 19.8 RATIO (10-20); Calcium,Total 9.3 mg/dL (8.5-10.1); Chloride 106 mmol/L (98-107); Creatinine, Serum 0.96 mg/dL (0.70-1.30); EST Glomerular Filtration Rate 86 mL/min (>60); Est Glom Filt Rate - Afr Amer 104 mL/min (>60); Globulin 3.4 g/dL (2.2-4.2); Glucose 81 mg/dL (74-106); PSA,Total - Annual Screen 0.65 ng/mL (0.00-4.00); Potassium 4.4 mmol/L (3.5-5.1); Protein, Total 7.4 g/dL (6.4-8.2); Sodium Level 139 mmol/L (136-145); Thyroid Stim Hormone (TSH) 1.06 uIU/mL (0.358-3.74)
[2023-02-17 13:56] LABS: Hepatitis C Antibody Non-Reactive (Nonreactive)
== END | disposition home or self-care (01) ==
LOC: POLAB3 09:16
PROVIDERS: PCP Family Medicine Geriatric Medicine; Visit Provider Family Medicine Geriatric Medicine
DX: I10 Essential (primary) hypertension (principal); Z12.5 Encounter for screening for malignant neoplasm of prostate
CPT/HCPCS: 36415; 80053; 84153; 84443; 85025; 86803; G0103

== ENCOUNTER 2023-04-21 12:04 | Outpatient (CLI) | payer OTHER, SELFPAY ==
[2023-04-21 13:32] LABS: Amphetamine Urine VISTA NEGATIVE (<1000 ng/mL); Barbiturate Urine VISTA NEGATIVE (< 200 ng/mL); Benzodiazepine Urine VISTA NEGATIVE (< 200 ng/mL); Cocaine Urine VISTA NEGATIVE (< 300 ng/mL); Ecstacy Urine VISTA NEGATIVE (< 500 ng/mL); Methadone Urine VISTA NEGATIVE (< 300 ng/mL); PCP Urine VISTA NEGATIVE (< 25 ng/mL); THC Urine VISTA NEGATIVE (< 50 ng/mL); Vista UDS pH Range 5
== END 2023-04-21 23:59 | disposition home or self-care (01) ==
LOC: LABSPEC 12:06
PROVIDERS: PCP Family Medicine Geriatric Medicine; Visit Provider Pain Medicine Interventional Pain Medicine
DX: M96.1 Postlaminectomy syndrome, not elsewhere classified (principal); M54.17 Radiculopathy, lumbosacral region
CPT/HCPCS: 80307

== ENCOUNTER 2023-09-11 09:48 | Outpatient (CLI) | payer OTHER, SELFPAY ==
[2023-09-11 10:51] LABS: Amphetamine Urine VISTA NEGATIVE (<1000 ng/mL); Barbiturate Urine VISTA NEGATIVE (< 200 ng/mL); Benzodiazepine Urine VISTA NEGATIVE (< 200 ng/mL); Cocaine Urine VISTA NEGATIVE (< 300 ng/mL); Ecstacy Urine VISTA NEGATIVE (< 500 ng/mL); Methadone Urine VISTA NEGATIVE (< 300 ng/mL); PCP Urine VISTA NEGATIVE (< 25 ng/mL); THC Urine VISTA NEGATIVE (< 50 ng/mL); Vista UDS pH Range 5
== END 2023-09-11 23:59 | disposition home or self-care (01) ==
LOC: LAB 09:49
PROVIDERS: PCP Family Medicine Geriatric Medicine; Referring Provider Pain Medicine Interventional Pain Medicine; Visit Provider Pain Medicine Interventional Pain Medicine
DX: M96.1 Postlaminectomy syndrome, not elsewhere classified (principal); M54.17 Radiculopathy, lumbosacral region; M75.42 Impingement syndrome of left shoulder
CPT/HCPCS: 80307

== ENCOUNTER → 2023-10-10 | Outpatient (CLI) | payer OTHER, SELFPAY ==
--- NOTE | 2023-10-10 12:10 | RAD_ITS ---
STUDY: X-RAY - LUMBAR SPINE REASON FOR EXAM: Male, 58 years old. Lower lumbosacral fusion. Follow-up. TECHNIQUE: 5 view(s) of the lumbar spine were obtained. COMPARISON: March 16, 2019. FINDINGS: Normal lumbar lordosis. No substantial scoliosis. Normal alignment of the vertebrae. Posterior fusion from L4 to S1, unchanged from prior study. Intervertebral disc space narrowing at L3-4 and L4-5, unchanged. The soft tissue structures are normal. RAD/L/S Spine Min 4 Views IMPRESSION: Stable posterior fusion from L4 to S1 with no complicating features. Electronically Signed: Gary Moseley MD at 12:48 EST ,
== END | disposition home or self-care (01) ==
LOC: RAD 11:59
PROVIDERS: PCP Family Medicine Geriatric Medicine; Referring Provider Pain Medicine Interventional Pain Medicine; Visit Provider Pain Medicine Interventional Pain Medicine
DX: M47.819 Spondylosis without myelopathy or radiculopathy, site unspecified (principal)
CPT/HCPCS: 72110

== ENCOUNTER → 2023-11-18 | Outpatient (CLI) | payer OTHER, SELFPAY ==
--- NOTE | 2023-11-18 12:18 | MRI_ITS ---
STUDY: MRI LEFT SHOULDER REASON FOR EXAM: Male, 58 years old. Pain, strain muscle. TECHNIQUE: Standardized fat and water weighted pulse sequences were obtained in all 3 orthogonal planes. COMPARISON: None. FINDINGS: There is mild supraspinatus, infraspinatus, and subscapularis tendinosis without a full-thickness tear. Normal teres minor tendon. Normal supraspinatus muscle. Normal infraspinatus muscle. Normal subscapularis muscle. Normal teres minor muscle. Normal glenohumeral articulation. Normal humeral head and visualized proximal humerus. Normal biceps labral complex. Normal intracapsular long biceps tendon. Normal labrum. Normal capsulo-ligamentous complex. Normal rotator interval. There is mild acromioclavicular arthrosis. There is a Type II morphology (curved), with a neutral orientation. There is no subacromial-subdeltoid bursal fluid. Normal visualized coracohumeral and coracoacromial ligaments. Normal quadrilateral space. Normal axillary space. Normal deltoid muscle. Normal trapezius muscle. MRI/Upper Ext Joint Only(Routine) IMPRESSION: Mild supraspinatus, infraspinatus, and subscapularis tendinosis without a full-thickness rotator cuff tear. Mild acromioclavicular arthrosis. Electronically Signed: Choco Gaffney MD at 13:42 EST ,
--- OUTSIDE RECORDS SUMMARY | 2023-11-18 12:31 | XMS RPT_ITS | CCD ---
Author Name Unknown Address [address] [place] [id number] Organization [facility] Care Team Providers Care Actuarial Internship Name Role Phone Lisset Pizarro LPN Unavailable Unavailab le Medications Completed/Discontinued Medications Medication Drug Class(es) Dates Sig (Normalized) Sig (Original) OXYCODONE-ACETAMINOPHEN (1 source) Opioid Agonist PERCOCET 5-325 M G TABS 1 tab every 6 hours as needed OXYCODONE-ACETAMINOPHE N [id number] Kenji Neri ascorbic acid 1000 mg extended release oral tablet (1 source) take 1 tablet by mouth once daily VITAMIN C ER 1000 MG CR-TABS One tablet by mouth daily ASCORBIC ACID [id number] Kenji Neri aspirin 325 mg delayed release oral tablet (1 source) Nonsteroidal Anti-inflammator y Drug Start: 7 ASPIRIN 325 MG TBEC as directed ASPIRIN [id number] Perla Payne LPN atorvastatin 10 mg oral tablet (1 source) HMG-CoA Reductase Inhibitor Start: 7 LIPITOR 10 MG TABS as directed ATORVASTATIN CALCIUM [id number] Perla Payne LPN CALCIUM CARBONATE (1 source) Start: 7 CALTRATE 600 1500 (600 Ca) MG TABS as directed CALCIUM CARBONATE [id number] Perla Payne LPN CALCIUM CARB-CHOLECALCIFEROL (1 source) Vitamin D take 1 tablet by mouth twice daily CALTRATE 600+D 600-800 MG-UNIT TABS One tablet by mouth twice daily CALCIUM CARB-CHOLECALCIFEROL [id number] Kenji Neri cholecalciferol 2000 unt oral tablet (1 source) Vitamin D take 1 tablet by mouth once daily HM VITAMIN D3 2000 UNIT CAPS One tablet by mouth daily CHOLECALCIFEROL 70856145189 Kenji Neri clopidogrel 75 mg oral tablet (1 source) P2Y12 Platelet Inhibitor Start: 7 PLAVIX 75 MG TABS as directed CLOPIDOGREL BISULFATE [id number] Perla Payne LPN 72 hr fentaNYL 0.025 mg/hr transdermal system (1 source) Opioid Agonist FENTANYL 25 MCG/ HR PT72 1 patch every 48 hours FENTANYL [id number] Kenji Neri hydroCHLOROthiazide 25 mg oral tablet (1 source) Thiazide Diuretic take 1 tablet by mouth once daily HYDROCHLOROTHIAZIDE 25 MG TABS One tablet by mouth daily HYDROCHLOROTHIAZIDE 73993748809 Kenji Neri magnesium oxide 500 mg oral tablet (1 source) take 1 tablet by mouth once daily MAGNESIUM 500 MG CAPS One tablet by mouth daily MAGNESIUM OXIDE 64157072414 Kenji Neri MULTIPLE VITAMINS-MINERALS (1 source) take 1 tablet by mouth once daily MULTIVITAMIN ADULT TABS One tablet by mouth daily MULTIPLE VITAMINS-MINERALS 52704886491 Kenji Neri VITAMIN E TABS (1 source) VITAMIN E TABS V ITAMIN E TABS 81949144441 Kenji Neri Problems Active Problems Problem Classification Problem Date Documented Da te Episodic/Chronic Osteoporosis (1 source) Osteoporosis; Translations: [Age-related osteoporosis without current pathological fracture] Onset: 05-14-2016 05-14-2016 Chronic Other hereditary and degenerative nervous system conditions (1 source) Essential tremor; Translations: [Essential tremor] Onset: 05-14-2016 05-14-2016 Chronic Unclassified (1 source) Screening for malignant neoplasm of colon ; Translations: [Encounter for screening for malignant neoplasm of colon] Onset: 05-14-2016 05-14-2016 Past or Other Problems Problem Classification Problem Date Documented Da te Episodic/Chronic Other upper respiratory disease (1 source) Congestion of nasal sinus; Translations: [Other specified disorders of nose and nasal sinuses] Onset: 01-17-2017 01-17-2017 Episodic Spondylosis; intervertebral disc disorders; other back problems (1 source) Low back pain; Translations: [Low back pain] Onset: 05-14-2016 05-14-2016 Episodic Results Test Name Value Interpretation Reference Range Facil ity Vital Signs Date Time Vital Sign Value Performing Clinician Paul colón 07-02-2017 11:00-0400 Body Temperature 98.4 [degF] Lisset Pizarro LPN [facility] Work Phone: 01-17-2017 17:31-0400 BMI (Body Mass Index) 26.25 kg/m2 Lisset Pizarro LPN [facility] No w Clinic Work Phone: 01-17-2017 17:31-0400 BP Diastolic 78 mm[Hg] Lisset Pizarro LPN [facility] Work Phone: 01-17-2017 17:31-0400 BP Systolic 116 mm[Hg] Lisset Pizarro LPN [facility] Work Phone: 01-17-2017 17:31-0400 Height 177.8 cm Lisset Pizarro LPN [facility] Work Phone: 01-17-2017 17:31-0400 Pulse (Heart Rate) 83 /min Lisset Pizarro LPN [facility] Now C [facility]inic Work Phone: 01-17-2017 17:31-0400 Respiratory Rate 14 /min Lisset Pizarro LPN [facility] Work Phone: 01-17-2017 17:31-0400 Weight 83.01 kg Lisset Pizarro LPN [facility] Now [facility] Work Phone: 05-14-2016 11:06-0400 BSA (Body Surface Area) 2.02 m2 Lisset Pizarro LPN [facility] Now Clinic Work Phone: Plan of Treatment Date Care Activity Detail Author Start: 07-02-2017 End: 07-02-2017 Appointment Appointment [facility] Work Phone: Start: 01-17-2017 End: 01-17-2017 Respiratory syncytial virus Ag [Presence] in Unspecified specimen by Immunoassay *RSV Resp Syncytial Virus, Infct Antigen [facility] Work Phone: Start: 05-14-2016 End: 05-14-2016 Diagnostic colonoscopy Colonoscopy [facility] Work Phone: Start: 05-14-2016 End: 05-14-2016 Follow Up Appt Other Follow Up Appt Other [facility] Work Phone: Start: 05-14-2016 End: 08-05-2016 Primary Care Physician Primary Care Physician Abhijeet Connelly, [address] [place], [address] [facility] Now Clinic Work Phone: Patient Education [facility] Now in Work Phone: Additional Source Comments FOR RECORDS PERTAINING TO PATIENTS WHO ARE OR HAVE BEEN ENROLLED IN A CHEMICAL DEPENDENCY/SUBSTANCEABUSE PROGRAM, SOME INFORMATION MAY BE OMITTED. This clinical summary was aggregated from multiple sources. Caution should be exercised in using it in the provision of clinical care. This summary normalizes information from multiple sources, and as a consequence, information in this document may materially change the coding, format and clinical context of patient data. In addition, data may be omitted in some cases. CLINICAL DECISIONS SHOULD BE BASED ON THE PRIMARY CLINICAL RECORDS. [facility] Medication Review [facility]. provides no warranty or guarantee of the accuracy or completeness of information in this document.
== END | disposition home or self-care (01) ==
LOC: MRI 12:10
PROVIDERS: PCP Family Medicine Geriatric Medicine; Referring Provider Student in an Organized Health Care Education/Training Program; Visit Provider Student in an Organized Health Care Education/Training Program
DX: S46.012A Strain of muscle(s) and tendon(s) of the rotator cuff of left shoulder, initial encounter (principal); M25.512 Pain in left shoulder; X58.XXXA Exposure to other specified factors, initial encounter
CPT/HCPCS: 73221

== ENCOUNTER → 2023-12-11 | Outpatient (CLI) | payer OTHER, SELFPAY ==
--- OUTSIDE RECORDS SUMMARY | 2023-12-11 06:23 | XMS RPT_ITS | CCD ---
Author Name Unknown Address [address] [place] [id number] Organization [facility] Care Team Providers Care Critical Care Unit Manager Name Role Phone Lisset Pizarro LPN Unavailable Unavailab le Medications Completed/Discontinued Medications Medication Drug Class(es) Dates Sig (Normalized) Sig (Original) OXYCODONE-ACETAMINOPHEN (1 source) Opioid Agonist PERCOCET 5-325 M G TABS 1 tab every 6 hours as needed OXYCODONE-ACETAMINOPHE N [id number] Kenji Neri ascorbic acid 1000 mg extended release oral tablet (1 source) take 1 tablet by mouth once daily VITAMIN C ER 1000 MG CR-TABS One tablet by mouth daily ASCORBIC ACID 55332394484 Kenji Neri aspirin 325 mg delayed release oral tablet (1 source) Nonsteroidal Anti-inflammator y Drug Start: 7 ASPIRIN 325 MG TBEC as directed ASPIRIN 59483397798 Perla Payne LPN atorvastatin 10 mg oral tablet (1 source) HMG-CoA Reductase Inhibitor Start: 7 LIPITOR 10 MG TABS as directed ATORVASTATIN CALCIUM 34391745539 Perla Payne LPN CALCIUM CARBONATE (1 source) Start: 7 CALTRATE 600 1500 (600 Ca) MG TABS as directed CALCIUM CARBONATE [id number] Perla Payne LPN CALCIUM CARB-CHOLECALCIFEROL (1 source) Vitamin D take 1 tablet by mouth twice daily CALTRATE 600+D 600-800 MG-UNIT TABS One tablet by mouth twice daily CALCIUM CARB-CHOLECALCIFEROL 23992432874 Kenji Neri cholecalciferol 2000 unt oral tablet (1 source) Vitamin D take 1 tablet by mouth once daily HM VITAMIN D3 2000 UNIT CAPS One tablet by mouth daily CHOLECALCIFEROL 76213765608 Kenji Neri clopidogrel 75 mg oral tablet (1 source) P2Y12 Platelet Inhibitor Start: 7 PLAVIX 75 MG TABS as directed CLOPIDOGREL BISULFATE [id number] Perla Payne LPN 72 hr fentaNYL 0.025 mg/hr transdermal system (1 source) Opioid Agonist FENTANYL 25 MCG/ HR PT72 1 patch every 48 hours FENTANYL [id number] Kenji Neri hydroCHLOROthiazide 25 mg oral tablet (1 source) Thiazide Diuretic take 1 tablet by mouth once daily HYDROCHLOROTHIAZIDE 25 MG TABS One tablet by mouth daily HYDROCHLOROTHIAZIDE 00172575913 Kenji Neri magnesium oxide 500 mg oral tablet (1 source) take 1 tablet by mouth once daily MAGNESIUM 500 MG CAPS One tablet by mouth daily MAGNESIUM OXIDE 12133877873 Kenji Neri MULTIPLE VITAMINS-MINERALS (1 source) take 1 tablet by mouth once daily MULTIVITAMIN ADULT TABS One tablet by mouth daily MULTIPLE VITAMINS-MINERALS [id number] Kenji Neri VITAMIN E TABS (1 source) VITAMIN E TABS V ITAMIN E TABS 44920803399 Kenji Neri Problems Active Problems Problem Classification [...] Body Temperature 98.4 [degF] Lisset Pizarro LPN [facility] Work Phone: 01-17-2017 17:31-0400 BMI (Body Mass Index) 26.25 kg/m2 Lisset Pizarro LPN [facility] No w Clinic Work Phone: 01-17-2017 17:31-0400 BP Diastolic 78 mm[Hg] Lisset Pizarro LPN [facility] Now Clin ic Work Phone: 01-17-2017 17:31-0400 BP Systolic 116 mm[Hg] Lisset Pizarro LPN [facility] Now [facility] Work Phone: 01-17-2017 17:31-0400 Height 177.8 cm Lisset Pizarro LPN [facility] Now [facility] ic Work Phone: 01-17-2017 17:31-0400 Pulse (Heart Rate) 83 /min Lisset Pizarro LPN [facility] Now C [facility]inic Work Phone: 01-17-2017 17:31-0400 Respiratory Rate 14 /min Lisset Pizarro LPN [facility] Work Phone: 01-17-2017 17:31-0400 Weight 83.01 kg Lisset Pizarro LPN [facility] Work Phone: 05-14-2016 11:06-0400 BSA (Body Surface Area) 2.02 m2 Lisset Pizarro LPN [facility] Work Phone: Plan of Treatment Date Care Activity Detail Author Start: 07-02-2017 End: 07-02-2017 Appointment Appointment [facility] Work Phone: Start: 01-17-2017 End: 01-17-2017 Respiratory syncytial virus Ag [Presence] in Unspecified specimen by Immunoassay *RSV Resp Syncytial Virus, Infct Antigen [facility] Work Phone: Start: 05-14-2016 End: 05-14-2016 Diagnostic colonoscopy Colonoscopy [facility] Work Phone: Start: 05-14-2016 End: 05-14-2016 Follow Up Appt Other Follow Up Appt Other [facility] Work Phone: Start: 05-14-2016 End: 08-05-2016 Primary Care Physician Primary Care Physician Abhijeet Connelly, [address] [place], [address] [facility] Work Phone: Patient Education [facility] Now in Work Phone: Additional Source [...] BE BASED ON THE PRIMARY CLINICAL RECORDS. [facility]. provides no warranty or guarantee of the accuracy or completeness of information in this document.
--- NOTE | 2023-12-11 06:37 | MRI_ITS ---
INDICATION: BACK PAIN EXAMINATION: MRI - MR Spine Thoracic W/O Contrast TECHNIQUE: Multiplanar and multisequence MR images of the thoracic spine. CcOMPARISON: Radiographs dated 04/02/2021 FINDINGS: VERTEBRAE: No fracture. Normal vertebral bodies and posterior elements. VERTEBRAL ALIGNMENT: Normal. There is preservation of the normal thoracic kyphosis. No scoliosis. DISCS: Normal disc height and morphology. Normal spinal canal and neuroforamina. CORD: Unremarkable in signal and morphology. Normal conus medullaris. SOFT TISSUES: Unremarkable. MRI/Spine Thoracic (Routine) IMPRESSION: Unremarkable MRI of the thoracic spine. Electronically Signed: Eliu Irizarry MD at 2:24 EST ,
== END | disposition home or self-care (01) ==
LOC: MRI 06:20
PROVIDERS: PCP Family Medicine Geriatric Medicine; Referring Provider Family Medicine Geriatric Medicine; Visit Provider Family Medicine Geriatric Medicine
DX: M54.6 Pain in thoracic spine (principal)
CPT/HCPCS: 72146

== ENCOUNTER 2024-01-09 14:30 | Outpatient (RCR) | payer OTHER, SELFPAY ==
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
--- NOTE | 2024-01-14 10:40 | HP.PTDCSUM ---
Discharge Summary D/C summary: It has been my pleasure to treat EV RESENDEZ referred by Dr. Devon Lewis DO, with the diagnosis of CERV RADIC, L RC STRAIN AND OA, AND THORACIC PAIN for a total of 9 visit(s). Discharge Date: 01/14/24 Please see the following information for a summary of their discharge status. Subjective Subjective: PATIENT REPORTS THAT THE PAINS HE CAME HERE FOR ARE GONE NOW. IT'S ALL GONE. I LOVE IT. IT SEEMS LIKE THIS IS THE FIRST TIME SOMETHING HAS WORKED FOR ME. PATIENT STATES HE CAN MANAGE WITH EXERCISES WITH THE BANDS ON HIS OWN NOW. Pain neck: Pain Intensity (Out of 10): 0 L Sh: Pain Intensity (Out of 10): 0 Overall Improvement % Improvement: 100 Objective Objective/Function: PATIENT WAS SEEN TODAY FOR RE-ASSESSMENT OF PROGRESS TOWARD THE SET PT GOALS AND THE NEED FOR FURTHER PHYSICAL THERAPY VS READINESS FOR DISCHARGE. UPON EXAM TODAY: SKYLAR UE ROM AND STRENGTH WFL. Cervical Mvmt Loss: Flex: NIL Pro: NIL Ext: MOD Ret: MOD RSB: NIL LSB: NIL R Rot: NIL L Rot: NIL THORACIC MVMT LOSS: R ROT - MIN L ROT - MIN PATIENT DENIES NECK, SHLD AND UPPER BACK PAIN WITH ALL TESTING TODAY BUT DOES HAVE SOME LBP WHICH HE REPORTS IS CHRONIC. Postural strength: GOOD Goals Goal 1:: DECREASE C/O NECK, L SHLD AND T/S PAIN BY AT LEAST 25% TO IMPROVE SLEEP. Goal Progress: Goal Met Goal 2:: DECREASE CERVICAL AND THORACIC TIGHTNESS TO EASE STRESS ON SPINE. Goal Progress: Goal Met Goal 3:: INCREASE POSTURAL STRENGTH FOR BETTER JOINT ALIGNMENT Goal Progress: Goal Met Goal 4:: PATIENT WILL SCORE AT LEAST 5 POINTS BETTER ON NECK OSWESTRY QUESTIONNARIE Goal Progress: Goal Met Goal 5:: INDEP HEP Goal Progress: Goal Met Plan Plan: D/C TO HEP D/C Information d/c sentence: If there are questions or concerns regarding this patient's physical therapy, please feel free to call me at [phone]. Thank you for the referral of this patient. Sincerely, Annette aCmpos, PT, Cert MDT Balance/Gait/Functional tests Balance/Special Test Scores Oswestry Neck Score: 5 Improvement % Improvement: 100
== END 2024-01-09 19:00 | disposition home or self-care (01) ==
LOC: PT 14:30
PROVIDERS: PCP Family Medicine Geriatric Medicine; Referring Provider Student in an Organized Health Care Education/Training Program; Visit Provider Student in an Organized Health Care Education/Training Program
DX: S46.012D Strain of muscle(s) and tendon(s) of the rotator cuff of left shoulder, subsequent encounter (principal); M19.012 Primary osteoarthritis, left shoulder; M54.12 Radiculopathy, cervical region; M54.6 Pain in thoracic spine
CPT/HCPCS: 97035; 97110; 97140; 97162

== ENCOUNTER → 2024-02-03 | Outpatient (CLI) | payer OTHER, SELFPAY ==
[2024-02-03 22:13] LABS: Amphetamine Urine VISTA NEGATIVE (<1000 ng/mL); Barbiturate Urine VISTA NEGATIVE (< 200 ng/mL); Benzodiazepine Urine VISTA NEGATIVE (< 200 ng/mL); Cocaine Urine VISTA NEGATIVE (< 300 ng/mL); Ecstacy Urine VISTA NEGATIVE (< 500 ng/mL); Methadone Urine VISTA NEGATIVE (< 300 ng/mL); PCP Urine VISTA NEGATIVE (< 25 ng/mL); THC Urine VISTA NEGATIVE (< 50 ng/mL); Vista UDS pH Range 5
== END | disposition home or self-care (01) ==
LOC: LAB 13:45
PROVIDERS: PCP Family Medicine Geriatric Medicine; Referring Provider Pain Medicine Interventional Pain Medicine; Visit Provider Pain Medicine Interventional Pain Medicine
DX: F11.90 Opioid use, unspecified, uncomplicated (principal)
CPT/HCPCS: 80307

== ENCOUNTER → 2024-02-23 | Outpatient (CLI) | payer OTHER, SELFPAY ==
[2024-02-23 10:28] LABS: Hematocrit 45.9 % (40-54); Hemoglobin 15.4 g/dL (13.0-16.5); Mean Corp Hgb Conc 33.6 g/dL (32-36); Mean Corpuscular Hgb 30.3 pg (27.0-32.0); Mean Corpuscular Volume 90.4 fL (80-94); Mean Platelet Vol. 9.5 fl (6.2-12.0); Platelet Count 303 K/mm3 (150-450); RBC Distribution Width CV 12.9 % (11.6-14.6); RBC Distribution Width SD 42.5 fl (35.1-43.9); Red Blood Count 5.08 M/mm3 (4.6-6.2); White Blood Count 6.7 K/mm3 (4.4-11.0)
[2024-02-23 11:47] LABS: ALB/GLOB Ratio 1.1 RATIO (0.9-2.4); AST(SGOT) 44 U/L (15-37); Alanine Aminotransfer ALT/SGPT 83 U/L (16-61); Alkaline Phosphatase 99 U/L (45-117); Anion Gap 3 (5-15); BUN 17 mg/dL (7-18); BUN/Creat Ratio 17.5 RATIO (10-20); Calcium,Total 9.2 mg/dL (8.5-10.1); Chloride 104 mmol/L (98-107); Creatinine, Serum 0.97 mg/dL (0.70-1.30); EST Glomerular Filtration Rate 85 mL/min (>60); Est Glom Filt Rate - Afr Amer 102 mL/min (>60); Globulin 3.5 g/dL (2.2-4.2); Glucose 92 mg/dL (74-106); PSA,Total - Annual Screen 0.69 ng/mL (0.00-4.00); Potassium 4.7 mmol/L (3.5-5.1); Protein, Total 7.5 g/dL (6.4-8.2); Sodium Level 135 mmol/L (136-145); Thyroid Stim Hormone (TSH) 1.19 uIU/mL (0.358-3.74)
== END | disposition home or self-care (01) ==
LOC: LAB 09:31
PROVIDERS: PCP Family Medicine Geriatric Medicine; Visit Provider Family Medicine Geriatric Medicine
DX: I10 Essential (primary) hypertension (principal); Z12.5 Encounter for screening for malignant neoplasm of prostate
CPT/HCPCS: 36415; 80053; 84153; 84443; 85027; G0103

== ENCOUNTER 2024-03-17 09:31 | Outpatient (CLI) | payer OTHER, SELFPAY ==
--- NOTE | 2024-03-17 09:35 | BD_ITS ---
STUDY: DUAL ENERGY X-RAY ABSORPTIOMETRY / DXA REASON FOR EXAM: Male, 59 years old. 733.00OsteoporosisBONE DENSITY REASON FOR EXAM TECHNIQUE: Bone Mineral Density (BMD) measurements of lumbar spine and left hip were obtained. COMPARISON: Comparison is made with prior study July 25, 2020. FINDINGS: Lumbar Spine (L1-L4): g/cm2 (0.913) / T-score (-1.4) / Z-score (-0.9) Findings are suggestive of osteopenia with a low fracture risk. Left Femur Total: g/cm2 (0.915) / T-score (-0.8) / Z-score (-0.4) Left Femoral Neck: g/cm2 (0.756) / T-score (-1.3) / Z-score (by 0.4) The T-Scores on the most recent prior examination were: Lumbar Spine (L1-L4): There has been worsening of bone density since the previous examination. Left Femur Total: which represents an improvement of 5.2%. BD/Dexa Bone Density Study IMPRESSION: The patient is considered osteopenic as outlined below according to World Ruddy Organization (WHO) criteria with a low fracture risk. There has been improvement of bone density since the previous examination. Reference Information: The T-score is the number of standard deviations above or below the standard which is normal for young adults at their peak bone mineral density. The World Health Organization (WHO) interprets the T-scores as follows: Above -1 Normal bone density Between -1 and -2.5 Osteopenia Equal to / or below -2.5 Osteoporosis As a practical clinical guideline, osteopenia may be graded as follows: Mild -1 through -1.5 Moderate -1.6 through -2.0 Severe -2.1 through -2.4 The Z-score is the number of standard deviations above or below age-matched controls. A Z-score of less than -1.5 would be considered abnormal. References: 1. NIH Osteoporosis and Related Bone Diseases www osteo.org 2. International Society for Clinical Densitometry www iscd.org 3. National Osteoporosis Foundation www nof.org Electronically Signed: Mk Strong MD at 15:31 EDT ,
== END 2024-03-17 23:59 | disposition home or self-care (01) ==
LOC: OPBD 09:31
PROVIDERS: PCP Family Medicine Geriatric Medicine; Visit Provider Family Medicine Geriatric Medicine
DX: M81.0 Age-related osteoporosis without current pathological fracture (principal)
CPT/HCPCS: 77080

== ENCOUNTER → 2024-05-25 | Outpatient (CLI) | payer OTHER, SELFPAY ==
[2024-05-25 11:30] LABS: Amphetamine Urine VISTA NEGATIVE (<1000 ng/mL); Barbiturate Urine VISTA NEGATIVE (< 200 ng/mL); Benzodiazepine Urine VISTA NEGATIVE (< 200 ng/mL); Cocaine Urine VISTA NEGATIVE (< 300 ng/mL); Ecstacy Urine VISTA NEGATIVE (< 500 ng/mL); Methadone Urine VISTA NEGATIVE (< 300 ng/mL); PCP Urine VISTA NEGATIVE (< 25 ng/mL); THC Urine VISTA POSITIVE (< 50 ng/mL); Vista UDS pH Range 5
== END | disposition home or self-care (01) ==
LOC: LAB 10:33
PROVIDERS: PCP Family Medicine Geriatric Medicine; Referring Provider Pain Medicine Interventional Pain Medicine; Visit Provider Pain Medicine Interventional Pain Medicine
DX: F11.20 Opioid dependence, uncomplicated (principal)
CPT/HCPCS: 80307

== ENCOUNTER 2024-06-07 17:53 | Emergency (ER) | payer OTHER, SELFPAY ==
[2024-06-07] VITALS (8 sets, daily range): BP systolic 126–173; BP diastolic 71–155; PULSE 76–87; RESP 16–18; TEMP 36.1–36.3; O2SAT 93–98
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
--- NOTE | 2024-06-07 18:43 | EDS_ITS ---
HPI History of Present Illness Chief Complaint: Dislocation Informant: patient Narrative Narrative: [id number] male presents right upper extremity injury Hours prior arrival. Working outdoors small tractor hit a rock tipping over. States fell onto his right wrist and pinned it, he no deformities at his elbow and swelling. No paresthesias. He is on oxycodone for history of chronic back pain with lumbar surgeries in the past. Denies any crushing injuries chest or head. No loss of conscious. Drank water on the way here. No recent large meals. PFSH PFS Medical History Essential hypertension COVID (06/21/22) Hyperlipidemia Osteoporosis Male hypogonadism Secondary hyperparathyroidism Vitamin D deficiency Hx of prostatitis History of secondary hypogonadism Osteoarthritis History of dissection of internal carotid artery Hypercholesterolemia with hyperglyceridemia Carotid artery dissection Back pain Home Medications ?Medication ?Instructions ?Recorded ?Last Taken ?Type calcium carbonate 600 mg-vitamin 2 tab PO DAILY@0800 08/06/13 04/27/16 History D3 20 mcg (800 unit) tablet cholecalciferol (vitamin D3) 25 1 tab PO DAILY 08/06/13 04/27/16 History mcg (1,000 unit) chewable tablet oxycodone-acetaminophen 5 mg-325 1 - 2 tab PO Q6H PRN PRN Pain 08/06/13 04/27/16 History mg tablet atorvastatin 40 mg tablet (Lipitor) 40 mg PO QDAY 03/03/18 05/08/18 History clopidogrel 75 mg tablet (Plavix) 75 mg PO QDAY 03/03/18 05/08/18 History aspirin 81 mg tablet,delayed 81 mg PO DAILY 06/28/22 Unknown History release (Adult Aspirin Regimen) echinacea 380 mg capsule 380 mg PO DAILY 06/28/22 Unknown History magnesium oxide 400 mg PO DAILY 06/28/22 Unknown History melatonin 5 mg capsule 5 mg PO .prn 06/28/22 Unknown History vitamin B complex (B 1 tab PO DAILY 06/28/22 Unknown History Complex-Vitamin B12 tablet) losartan 100 1 tab PO QDAY 01/05/24 Unknown History mg-hydrochlorothiazide 12.5 mg tablet ondansetron 4 mg disintegrating 4 mg PO Q8H PRN PRN Nausea #10 tabs 06/07/24 Unknown Rx tablet Allergy/AdvReac Type Severity Reaction Status Date / Time varenicline (From Chantix) AdvReac Mild Itching Verified 06/07/24 17:53 Family History Sister Hypertension Grandfather Diabetes Surgical History History of carpal tunnel release History of spinal fusion History of total right hip arthroplasty H/O vasectomy Social History Smoking Status: Never smoker Smokeless tobacco user: snuff alcohol intake: current alcohol intake frequency: holidays/special occasions only ROS ROS ED Constitutional Constitutional ED: Denies chills, fever(s) or sweats Eyes Eyes: Denies change in vision ENT ENT ED: Denies dysphagia or sore throat Cardiovascular Cardiovascular: Denies chest pain, leg edema, palpitations or racing heartbeat Respiratory/Chest Respiratory/Chest: Denies cough, dyspnea or dyspnea on exertion Gastrointestinal Gastrointestinal: Denies abdominal pain, diarrhea, nausea or vomiting Genitourinary Genitourinary ED: Denies dysuria, hematuria or urinary frequency Musculoskeletal Musculoskeletal: Reports extremity pain; Denies back pain or neck pain Integumentary Denies rash or wounds Neurologic Neurologic: Denies headache(s), paresthesias or weakness EXAM Physical Exam Const Vital Signs: 06/07/24 17:53 Temperature 97 F L Temperature Source Temporal Pulse Rate 78 Respiratory Rate 17 Blood Pressure 126/84 H Blood Pressure Mean 98 Pulse Ox 95 Oxygen Delivery Method Room Air Positive well nourished and well developed Constitutional Narrative: GCS 15 General Appearance ED: well developed and NAD HEENT Reports moist mucous membranes normocephalic and atraumatic Eyes EOMs intact bilaterally and conjunctivae normal General Eye ED: Yes normal appearance of both eyes Neck no lymphadenopathy and supple General: Negative for tenderness Chest Wall inspection of chest normal and palpation of chest normal Chest: Negative for tenderness Resp normal respiratory effort and normal air movement Effort and Inspection: symmetric chest movement; Negative for respiratory distre ss Cardio regular rate, regular rhythm and no murmurs Peripheral Pulses: pulses 2+ throughout GI normal to inspection, nondistended, normoactive bowel sounds and non-tender Palpation: Negative for guarding or rebound tenderness present Back/Spine no CVA tenderness and no thoracic nor lumbar tenderness Extremity Extremity Narrative: Lower extremities: Negative logroll. Left upper extremity: Full range of motion any tenderness. Right upper extremity: No shoulder tenderness. There is swelling at the elbow posteriorly there is deformity skin intact. Elbow in a slight flexed position however patient did allow to straighten. Swelling to the forearm however soft compartments. There was superficial abrasions distal forearm and dorsal wrist. No lacerations. No hand tenderness. Neuro oriented x3 and no sensory deficits noted Sensorium / Orientation: awake and alert Skin no rashes or lesions noted and no wounds MDM MDM MDM Narrative Medical decision making narrative: Interventions / MDM: Differential diagnosis: Fracture, dislocation Diagnosis considered but do not suspect: No clinical compartment syndrome My EKG interpretation: N/A Imaging independently reviewed and interpreted by myself: 3 views right wrist: No acute fractures old fracture of styloid process ulnar noted. 3 views right elbow: Chip fractures radial head along with the coronoid process. There is posterior dislocation noted. Also read by radiology. 2 view right elbow postreduction x-ray: Elbow relocated. Splint noted. External documents reviewed: N/A Test considered but not ordered:N/A ED course: Images performed through triage treatment myself initially had concerns for this location right elbow with small chip fractures. Right wrist with old fractures. Able allow me to extend the elbow, gentle tractions with attempted bedside however there is significant swelling to elbow. There is no relocation. Patient will be consented for sedation with attempted relocation. 1950: Written consent obtained, risk and benefits discussed. salon coordinator oxygen capnography, IV fluids at KVO. Timeout performed at 1950. 2 mg IV Versed ordered, additional 50 mg of propofol given. Moderate sedation achieved, nursing provided traction with a sheet, traction of the elbow stable to note to slide back into place. Improve visualization of the olecranon. Nylon sleeve, Kerlix dressings extra padding at the elbow was placed. Patient placed in 5 inch posterior plaster splint along with 3 inch stirrups for coapt splint around the elbow up the humerus. This was secured with an William wrap. Neurovascular intact post splint. Reduction x-rays ordered. Total sedation time 10 minutes. Normal sinus rhythm on the monitor. Postreduction films confirmed relocation. Discussed continue to elevate ice, he has Percocets at home. He is given follow-up with orthopedics as an outpatient. Signs return discussed monitoring for compartment syndrome. All questions were answered. Re-evaluation: stable Disposition discussed with patient/family/significant other: Patient and spouse Case discussed with consulting clinician: N/A This note was generated with [employer] dictation software. It may contain incorrect words, spelling, and punctuation that were not noted in checking the note before signing. Radiography Diagnostic Testing: Clinical Impression(s) from Imaging Studies Wrist X-Ray 06/07/24 18:00 IMPRESSION: Soft tissue swelling. No acute fracture. Electronically Signed: Guy Ramirez MD at 18:39 EDT , Discharge Plan Triage Chief Complaint: Dislocation ED Provider: Jas Sahni Dx/Rx/DC Orders Clinical Impression: Closed dislocation of right elbow, Closed fracture of right elbow, Contusion of right wrist Instructions: ED Elbow Dislocation, ED Elbow Fracture Prescriptions: New ondansetron 4 mg tablet,disintegrating 4 mg PO Q8H PRN PRN (Reason: Nausea) Qty: 10 0RF No Action clopidogrel [Plavix] 75 mg tablet 75 mg PO QDAY atorvastatin [Lipitor] 40 mg tablet 40 mg PO QDAY aspirin [Adult Aspirin Regimen] 81 mg tablet,delayed release (DR/EC) 81 mg PO DAILY vitamin B complex [B Complex-Vitamin B12] Tablet 1 tab PO DAILY magnesium oxide 400 mg magnesium tablet 400 mg PO DAILY echinacea 380 mg capsule 380 mg PO DAILY Rx Instructions: administer with meals melatonin 5 mg capsule 5 mg PO .prn losartan-hydrochlorothiazide 100-12.5 mg tablet 1 tab PO QDAY oxycodone-acetaminophen 1 TABLET tablet 1 - 2 tab PO Q6H PRN PRN (Reason: Pain) cholecalciferol (vitamin D3) 1,000 UNIT tablet,chewable 1 tab PO DAILY calcium carbonate-vitamin D3 1 TAB tablet 2 tab PO DAILY@0800 Primary Care Provider: Marv Navarrete Chi Referrals: Devon Lweis DO [Med Staff - Active Staff] - 2 Days Marv Navarrete Chi, MD [Primary Care Provider] - Activity Restrictions/Additional Instructions: Right elbow dislocation with avulsion fractures of the radial head and coronoid process of the ulna. Status post reduction. Maintain splint. Sling for comfort. Follow-up with Dr. Lewis. Take your home Percocet medications. Nausea medicine sent to your pharmacy in case you have nausea post sedation. Continue to ice and elevate. If you develop worsening sudden pain numbness to the hands, return to the ED for reevaluation. Print Language: Singaporean Disposition Disposition: Home, Self Care Discharge Date/Time: 06/07/24 21:07
[2024-06-07] MEDS: Midazolam 2 MG/2 ML Syringe IV (19:28)
[2024-06-07] MEDS: 0.9% Normal Saline (1000mL) 1,000 ML 15 ML IV (19:28)
[2024-06-07] MEDS: Propofol 200 MG/20 ML Vial IV BOLUS (19:28)
--- NOTE | 2024-06-07 20:10 | RAD_ITS ---
STUDY: X-RAY - RIGHT ELBOW REASON FOR EXAM: Male, 59 years old. Post reduction TECHNIQUE: 2 view(s) of the elbow. COMPARISON: None. FINDINGS: There is improved alignment of the radiocapitellar and ulnotrochlear articulations. There is cast material obscuring detail. RAD/Elbow 2 Views IMPRESSION: Improved alignment with possible reduction of dislocation. Evaluation is suboptimal due to positioning and artifact. Electronically Signed: Guy Ramirez MD at 21:27 EDT ,
== END 2024-06-07 21:07 | disposition home or self-care (01) ==
PROVIDERS: Emergency Provider Emergency Medicine; PCP Family Medicine Geriatric Medicine; Visit Provider Emergency Medicine
DX: S52.121A Displaced fracture of head of right radius, initial encounter for closed fracture (principal); S52.181A Other fracture of upper end of right radius, initial encounter for closed fracture; V84.5XXA Driver of special agricultural vehicle injured in nontraffic accident, initial encounter; I10 Essential (primary) hypertension; E78.00 Pure hypercholesterolemia, unspecified; Z79.891 Long term (current) use of opiate analgesic; Z79.82 Long term (current) use of aspirin; Z79.02 Long term (current) use of antithrombotics/antiplatelets; Z79.899 Other long term (current) drug therapy
CPT/HCPCS: 24600; 73070; 73080; 73110; 99285; J7030; A4216

== ENCOUNTER → 2024-06-14 | Outpatient (CLI) | payer OTHER, SELFPAY ==
--- NOTE | 2024-06-14 13:51 | CT_ITS ---
EXAM: CT RIGHT UPPER EXTREMITY WITHOUT INTRAVENOUS CONTRAST CLINICAL INDICATION: RADIUS FX TECHNIQUE: Helically acquired images were obtained of the right upper extremity without intravenous contrast. 2-D reformats were performed by the technologist. CTDIvol = ( 24.58 ) mGy, DLP = ( 579.04 ) mGycm This CT exam was performed using one or more of the following dose reduction techniques: automated exposure control, adjustment of the mA and/or kV according to patient size, and/or use of iterative reconstruction technique. COMPARISON: No relevant prior studies available. FINDINGS: BONES/JOINTS: Acute subtle nondisplaced fracture involving the radial head including its articular surface. Positive for elbow joint effusion. Small posterior calcaneal enthesophyte. No sclerotic or destructive changes. SOFT TISSUES: Diffuse subcutaneous edema. No radiopaque foreign body. CT/Extremity Upper without Contra IMPRESSION: 1. Positive for elbow joint effusion. 2. Acute subtle nondisplaced fracture involving the radial head including its articular surface. Electronically Signed: Carlos Ward MD at 23:28 EDT ,
== END | disposition home or self-care (01) ==
LOC: CT 13:33
PROVIDERS: PCP Family Medicine Geriatric Medicine; Referring Provider Physician Assistant; Visit Provider Physician Assistant
DX: S52.121A Displaced fracture of head of right radius, initial encounter for closed fracture (principal); S53.024A Posterior dislocation of right radial head, initial encounter; X58.XXXA Exposure to other specified factors, initial encounter
CPT/HCPCS: 73200

== ENCOUNTER → 2024-07-09 | Outpatient (CLI) | payer OTHER, SELFPAY ==
[2024-07-09 07:50] LABS: AST(SGOT) 37 U/L (15-37); Alanine Aminotransfer ALT/SGPT 95 U/L (16-61); Albumin, Serum 3.9 g/dL (3.2-5.0); Alkaline Phosphatase 142 U/L (45-117); Bilirubin, Direct 0.22 mg/dL (0.00-0.30); Cholesterol 123 mg/dL (200); Globulin 3.5 g/dL (2.2-4.2); High Density Lipoprotein 62 mg/dL; Protein, Total 7.4 g/dL (6.4-8.2); Triglycerides 60 mg/dL; Very Low Density Lipoprotein 12 mg/dL (5-40)
== END | disposition home or self-care (01) ==
LOC: LAB 05:59
PROVIDERS: PCP Family Medicine Geriatric Medicine; Referring Provider Physician Assistant Medical; Visit Provider Physician Assistant Medical
DX: E78.5 Hyperlipidemia, unspecified (principal)
CPT/HCPCS: 36415; 80061; 80076

== ENCOUNTER → 2024-07-13 | Outpatient (CLI) | payer OTHER, SELFPAY ==
--- NOTE | 2024-07-13 17:41 | STRESSREP ---
Stress Test Report Pharmacologic myocardial perfusion stress test. 59-year-old with a history of chest pain Resting EKG demonstrates sinus rhythm with a rate of 67 bpm. Resting blood pressure is 128/86 mmHg. 0.4 mg of regadenoson was infused per usual protocol followed by rapid intravenous saline flush injection. Continuous EKG monitoring was performed. The maximum heart rate was 103 bpm which was 63% of max impacted heart rate the maximum workload was 1 metabolic equivalent. At rest there were no ST or T wave changes noted to suggest ischemia and at peak infusion nonspecific ST changes were noted which did not meet the criteria for ischemia. No clinical angina is noted. The final blood pressure was 130/84 mmHg. Myocardial perfusion protocol. 12.0 mCi of technetium 99m sestamibi was injected at rest. 0.4 mg of regadenoson was infused per usual protocol. At peak infusion 34.5 mCi of technetium 99m sestamibi was injected stress images were obtained stress and rest images were reconstructed and compared in the short axis vertical long and horizontal long axis. Gated images were also obtained. Perfusion SPECT analysis: Review of the stress images demonstrate normal uptake of tracer noted in all areas of the myocardium. The resting images similar demonstrated normal uptake of tracer noted in all areas of the myocardium. No areas of reversibility are noted to suggest ischemia and no previous infarct is noted. Gated SPECT analysis: The gated ejection fraction is 72%. Conclusion: Normal pharmacologic myocardial perfusion stress test. Preserved ejection fraction.
== END | disposition home or self-care (01) ==
LOC: CVS 06:08
PROVIDERS: PCP Family Medicine Geriatric Medicine; Referring Provider Physician Assistant Medical; Visit Provider Physician Assistant Medical
DX: R07.9 Chest pain, unspecified (principal); I10 Essential (primary) hypertension; R53.83 Other fatigue; Z86.79 Personal history of other diseases of the circulatory system
CPT/HCPCS: 78452; 93017; A9500; A4216; J2785

== ENCOUNTER → 2024-07-19 | Outpatient (CLI) | payer OTHER, SELFPAY ==
[2024-07-19 12:01] LABS: Amphetamine Urine VISTA NEGATIVE (<1000 ng/mL); Barbiturate Urine VISTA NEGATIVE (< 200 ng/mL); Benzodiazepine Urine VISTA NEGATIVE (< 200 ng/mL); Cocaine Urine VISTA NEGATIVE (< 300 ng/mL); Ecstacy Urine VISTA NEGATIVE (< 500 ng/mL); Methadone Urine VISTA NEGATIVE (< 300 ng/mL); PCP Urine VISTA NEGATIVE (< 25 ng/mL); THC Urine VISTA NEGATIVE (< 50 ng/mL); Vista UDS pH Range 6
== END | disposition home or self-care (01) ==
LOC: LAB 10:38
PROVIDERS: PCP Family Medicine Geriatric Medicine; Referring Provider Pain Medicine Interventional Pain Medicine; Visit Provider Pain Medicine Interventional Pain Medicine
DX: Z79.891 Long term (current) use of opiate analgesic (principal)
CPT/HCPCS: 80307

== ENCOUNTER 2024-07-26 10:30 | Outpatient (RCR) | payer OTHER, SELFPAY ==
--- NOTE | 2024-06-18 10:49 | HP.OTEVAL_ITS ---
Patient's Visit Information Visit Information Visit Information: EV RESENDEZ is a 59 year old M, referred to Occupational Therapy by EDITH Swanson, with a diagnosis of post. dis of R radial head, disp fx R radius, disp fx coronoid pro R ulna. Date of Evaluation: 06/18/24 Occupational Therapist: Li Hunt, DULCER/Marylou, CHT Subjective Subjective: this 59-year-old male arrives with dx of post. dis of R radial head, disp fx R radius, disp fx coronoid pro R ulna. pt flipped tractor and hand was stuck under it. occurred 06/08/24 1 week 3 days s/p. pt states elevating arm during day and not having any pain except when moving elbow. pt arrives in elbow sling and claudia wrap. denies numbness and tingling. pt lives with and sons are able to help if needed at home. pt is R handed. difficulty putting socks on. pt is retired. Pain R elbow: Current Pain Intensity: 0 Pain Intensity Range: 5 Objective Objective/Observation: pt arrives wearing elbow sling and claudia wrap ROM Elbow: R -60/95 L 0/135 Wrist: R 20/20 L 35/65 ROM Comments: R 4cm away from composite fist L full composite fist Strength [employer] Production Team Member: L 120# R NT Lateral Pinch: L 23# R NT Tripod Pinch: L 23# R NT Strength Comments: R to be tested at later date Edema Other: R MP 22cm L MP 18.90cm Sensation Sensation Comments: denies Quick DASH-Disab of Arm,Shoulder& Hand Quick DASH Score: 59.0900 Goals Goal:: pt will increase RUE strength equal to or greater than unaffected side in order to complete daily functional tasks. 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 Goal:: pt will improve R elbow flexion by 30* or more to increase I in self-care and other functional tasks. pt will improve R elbow extension by 40* or more to increase I in self-care and other functional tasks. pt will improve R wrist flexion by 30* or more to increase I in self-care and other functional tasks. pt will improve R composite fist by 3cm or more in order to complete daily functional tasks. (4cm away from composite fist) Goal:: pt will demo 100% adherence to joint protection techniques and wrist/elbow ergonomics by end of POC. Goal:: pt will report increase I in all ADLs/IADLs by end of POC. Goal:: pt will improve QuickDASH score by 30 points or more to maximize use of RUE by end of POC. (59.09) Goal:: pt will demo 100% accuracy to HEP by end of 3rd session. Rehabilitation General Assessment: this 59-year-old male arrives with dx of post. dis of R radial head, disp fx R radius, disp fx coronoid pro R ulna. pt demo limited RUE ROM, strength, and pain impacting pt ability to complete daily functional tasks, ADLs/IADLs. pt recommended to complete OT services 2x a week for 6 weeks to address above impairments. Therapist ed, pt on edema control, cont. ROM of shoulder wrist and elbow along with digit ROM- pt instructed to perform light ROM no aggressive motion or increase in Pain. pt demo understanding. pt demo understanding and agree to POC. Therapy session was directly supervised and doc. approved by Li Hunt OTR/L,CHT. Rehabilitation Potential: Good Anticipated Interventions Anticipated Interventions: A/AAROM/PROM, Strengthening, Edema Control, Modalities, Joint Protection/Energy Conservation, Ergonomic Education, Education re assistive Equipment, Education re Diagnosis, Caregiver Training and Home Program Visit Plan Frequency: 2x /Week Duration: 6 Weeks General Plan: decrease swelling and pain improve ROM increase strength use wrist/hand/arm normally again TEXT: Thank you for the opportunity to evaluate your patient. For Medicare and Medicare HMO plans, please review the plan of care and approve it. It will need to be FAXED BACK to us at [phone] for Medicare purposes. Please let me know if there are questions or concerns regarding this plan of care. Physician Signature: Date:
--- NOTE | 2024-12-03 11:30 | HP.OT.NRP ---
Patient Information Patient Information: EV RESENDEZ was seen in my office for initial evaluation on 06/18/24. The following Plan of Care was established for this patient: POC Established Initial Frequency: 2x /Week Initial Duration: 6 Weeks Plan: cont to improve pts elbow AROM/PROM begin to strengthen w/dr's release to do so Anticipated Interventions Anticipated Interventions: A/AAROM/PROM, Strengthening, Edema Control, Modalities, Joint Protection/Energy Conservation, Ergonomic Education, Education re assistive Equipment, Education re Diagnosis, Caregiver Training and Home Program Last Seen Last Seen: This patient was last seen in our office 07/26/24. Pertinent comments regarding their Occupational therapy will appear below: pt was seen for 12 OT sessions.pt was making great progress and was transitioning to strengthening.- pt was to return for last session but cancelled. Due to time lapse in services pt d/c at this time. At this point I will be discontinuing this patient from occupational therapy. I would be happy to see this patient again in the future if found appropriate by the physician. Thank you! Li Hunt, OTR/L, CHT
== END 2024-07-26 19:00 | disposition home or self-care (01) ==
LOC: OT 10:30
PROVIDERS: PCP Family Medicine Geriatric Medicine; Referring Provider Physician Assistant; Visit Provider Physician Assistant
DX: S53.024D Posterior dislocation of right radial head, subsequent encounter (principal); S52.121D Displaced fracture of head of right radius, subsequent encounter for closed fracture with routine healing; S52.041D Displaced fracture of coronoid process of right ulna, subsequent encounter for closed fracture with routine healing
CPT/HCPCS: 97110; 97140; 97166; 97530

== ENCOUNTER → 2024-08-13 | Outpatient (CLI) | payer SELFPAY, OTHER ==
--- NOTE | 2024-08-13 07:10 | CT_ITS ---
STUDY: CT CHEST WITHOUT CONTRAST REASON FOR EXAM: Male, 59 years old. CHEST PAIN limited over read only RADIATION DOSAGE (If Supplied By Facility): CTDIvol = ( 12.19 ) mGy, DLP = ( 243.79 ) mGycm TECHNIQUE: Transaxial imaging was performed without the administration of intravenous contrast material. Individualized dose optimization techniques were used for this CT. COMPARISON: No relevant priors. FINDINGS: CHEST The lungs are normal. There is no demonstrated pleural abnormality. Normal heart and pericardium. Mild right coronary artery calcification. There are small lymph nodes within the mediastinum, which are normal in size and morphology most compatible with reactive lymph hyperplasia. Normal hilar regions. Normal unenhanced pulmonary arteries. Normal aorta arch and descending thoracic aorta. Normal osseous structures. There is no demonstrated abnormality of the visualized upper abdomen. CT/Limited Chest CT Cardiac Only IMPRESSION: Mild degree of right coronary artery calcification. Electronically Signed: Mk Strong MD at 12:33 EST ,
--- NOTE | 2024-08-15 12:39 | CA.SCORE ---
Calcium Scoring Date of Study:: 08/13/24 Indications Indications: Chest pain Coronary Calcium Scoring: High-resolution Computed Tomographic imaging of the chest was performed on [08/23/2024], with particular attention paid to the coronary arteries. Images from the examination were analyzed for the presence and extent of coronary artery calcification , using coronary calcium quantification software. The patient tolerated the procedure well and there were no complications. The results of the coronary calcification analysis are provided below. Findings Coronary Artery Left Main (LM): 0 Left Anterior Descending (LAD): 0 Left Circumflex (LCX): 0 Right Coronary Artery (RCA): 11.9 Total Agatston Score: 11.9 Percentile Rankinth-50th Calcium Scoring Interpretation: Different methods to categorize the overall amount of coronary plaque. Overall amount CAC SIS Visual of coronary plaque P1 Mild -100 <2 1-2 vessels with mild amount of plaque P2 Moderate 101-300 3-4 1-2 vessels with moderate amount, 3 vessels with mild amount of plaque P3 Severe 301-999 5-7 3 vessels with moderate amount, 1 vessel with severe amount of plaque P4 Extensive >1000 >8 2-3 vessels with severe amount of plaque Calcium Score: Mild: 1-2 vessels w/mild amount of plaque Conclusion: Mild atherosclerotic plaque noted in the right coronary artery
== END | disposition home or self-care (01) ==
PROVIDERS: PCP Family Medicine Geriatric Medicine; Referring Provider Physician Assistant Medical; Visit Provider Physician Assistant Medical
DX: R07.9 Chest pain, unspecified (principal); I10 Essential (primary) hypertension; Z82.49 Family history of ischemic heart disease and other diseases of the circulatory system
CPT/HCPCS: 75571; 76380